=== PATIENT | male | born 1955 | race Caucasian/White ===

== ENCOUNTER 2017-06-15 18:27 | Emergency (ER) | payer BC ==
[2017-06-15 18:39] VITALS: BP 126/87
--- NOTE | 2017-06-15 18:48 | ED ---
Skin Complaint - HPI Summary HPI Summary: 62 YEAR OLD MALE PRESENTS WITH FOREIGN BODY IN RIGHT INDEX FINGER. - History of Current Complaint Chief Complaint: UCUpperExtremity Time Seen by Provider: 06/15/17 18:46 Stated Complaint: SOFT TISSUE COMPLAINT Hx Obtained From: Patient Onset/Duration: Started Days Ago Skin Exposure Onset/Duration: Days Ago Timing: Constant Onset Severity: Moderate Current Severity: Severe Pain Scale Used: 0-10 Numeric - 7 - Allergy/Home Medications Allergies/Adverse Reactions: Allergies Allergy/AdvReac Type Severity Reaction Status Date / Time No Known Allergies Allergy Verified 06/15/17 18:39 PMH/Surg Hx/FS Hx/Imm Hx Previously Healthy: Yes Endocrine/Hematology History: Reports: Hx Diabetes - TYPE II - CHECKS BLOOD SUGAR DAILY- ON ORAL MEDICATION FOR Denies: Hx Sickle Cell Disease Cardiovascular History: Reports: Hx Coronary Artery Disease - HIGH CHOLESTEROL, Hx Hypertension - ON MEDICATION FOR, Hx Peripheral Vascular Disease - HX OF VARICOSE VEINS, Other Cardiovascular Problems/Disorders - CHOLESTEROL CONTROL WITH MEDS Denies: Hx Pacemaker/ICD Respiratory History: Reports: Hx Sleep Apnea Denies: Other Respiratory Problems/Disorders GI History: Reports: Hx Gastroesophageal Reflux Disease - ON MEDICATION FOR History: Denies: Other Problems/Disorders Musculoskeletal History: Reports: Hx Arthritis - BACK-DOES NOT BOTHER PATIENT, EXERCISE HELPS Denies: Other Musculoskeletal History Sensory History: Reports: Hx Cataracts - LEFT, Hx Contacts or Glasses - GLASSES Denies: Hx Hearing Aid Opthamlomology History: Reports: Hx Cataracts - LEFT, Hx Contacts or Glasses - GLASSES Neurological History: Denies: Other Neuro Impairments/Disorders - Surgical History Surgery Procedure, Year, and Place: VARICOSE VEIN [id number]. APPENDECTOMY-[facility]. 12/2012 TAILOR'S BUNIONECTOMY WITH METARTARSAL OSTEOTOMY , EXCISION OF BONE SPUR, DEBRIDEMENT OF TENDON RIGHT FOOT, [facility]. 03/2013 ORIF FIFTH METATARSAL RIGHT FOOT. 05/2013 CATARACT EXTRACTION TO THE RIGHT EYE WITH IOL IMPLANT, [facility] Hx Anesthesia Reactions: No Infectious Disease History: No Infectious Disease History: Reports: Hx Hepatitis - HEPATITIS A AND B, YEARS AGO , NO PROBLEMS NOW Denies: Hx Clostridium Difficile, Hx Human Immunodeficiency Virus (HIV), Hx of Known/Suspected MRSA, Hx Shingles, Hx Tuberculosis, Hx Known/Suspected VRE, Hx Known/Suspected VRSA, History Other Infectious Disease, Traveled Outside the [place] in Last 30 Days - Social History Alcohol Use: Rare Substance Use Type: Reports: None Smoking Status (MU): Never Smoked Tobacco Have You Smoked in the Last Year: No Review of Systems Constitutional: Negative Eyes: Negative ENT: Negative Cardiovascular: Negative Respiratory: Negative Gastrointestinal: Negative Genitourinary: Negative Musculoskeletal: Negative Positive: Other - FOREIGN BODY RIGHT INDEX FINGER All Other Systems Reviewed And Are Negative: Yes Physical Exam Triage Information Reviewed: Yes Vital Signs On Initial Exam: Initial Vitals Temp Pulse BP Pulse Ox 36.8 C 73 126/87 97 06/15/17 18:36 06/15/17 18:36 06/15/17 18:36 06/15/17 18:36 Vital Signs Reviewed: Yes Appearance: Positive: Well-Appearing Skin: Positive: Other - FOREIGN BODY RIGHT INDEX FINGER Eyes: Positive: Normal ENT: Positive: Normal ENT inspection Neck: Positive: Supple Respiratory/Lung Sounds: Positive: Clear to Auscultation Cardiovascular: Positive: Normal Abdomen Description: Positive: Nontender Bowel Sounds: Positive: Present Musculoskeletal: Positive: Normal Neurological: Positive: Normal Psychiatric: Positive: Normal Procedures - Procedure Summary Procedure Summary: FOREIGN BODY REMOVAL RIGHT INDEX FINGER WITH IRIS SCISSORS. DIGITAL BLOCK. CX SENT TO LAB. Diagnostics - Vital Signs Vital Signs Temp Pulse BP Pulse Ox 06/15/17 18:36 36.8 C 73 126/87 97 - Laboratory Lab Statement: Any lab studies that have been ordered have been reviewed, and results considered in the medical decision making process. Course/Dx - Diagnoses Provider Diagnoses: Foreign body (FB) in soft tissue Discharge - Discharge Plan Condition: Stable Disposition: HOME Prescriptions: Sulfamethox/Trimethoprim DS* [Bactrim DS 800/160 TAB*] 1 tab PO BID #20 tab Patient Education Materials: Soft Tissue Foreign Body (ED) Referrals: Christopher Mathias MD [Primary Care Provider] -
[2017-06-15] MEDS ORDERED: Lidocaine 1% MPF* 2 ML VIAL INJ ONE ×3 (19:07→19:47)
--- NOTE | 2017-06-15 19:11 | RAD ---
INDICATION: Foreign body under male right index finger. TECHNIQUE: 3 views of the right index finger were obtained. FINDINGS: There is soft tissue swelling around the distal phalanx and also at the level of the proximal interphalangeal joint. The bones are normal alignment. No fracture or radiopaque foreign body is seen. Joint spaces appear maintained. IMPRESSION: NO FRACTURE OR RADIOPAQUE BODY IS SEEN.
[2017-06-15] MEDS ORDERED: Lidocaine 1% MPF* 2 ML VIAL ONE (19:27)
== END 2017-06-15 20:00 | disposition home or self-care (01) ==
LOC: UCEAST 18:27
DX: S60.450A Superficial foreign body of right index finger, initial encounter (principal); X58.XXXA Exposure to other specified factors, initial encounter; Y93.9 Activity, unspecified; Y92.9 Unspecified place or not applicable; E11.9 Type 2 diabetes mellitus without complications; Z79.84 Long term (current) use of oral hypoglycemic drugs; I25.10 Atherosclerotic heart disease of native coronary artery without angina pectoris; I10 Essential (primary) hypertension; E78.00 Pure hypercholesterolemia, unspecified; I73.9 Peripheral vascular disease, unspecified; K21.9 Gastro-esophageal reflux disease without esophagitis; Z98.41 Cataract extraction status, right eye; Z96.1 Presence of intraocular lens; Z86.19 Personal history of other infectious and parasitic diseases
CPT/HCPCS: 10120; 73140; 87070; 87077; 87186; 87205; 87640; 87641; 99212; G0463

== ENCOUNTER 2018-03-23 08:46 | Day surgery (SDC) | payer BC ==
[~2018-03-23 08:46] MED LIST: Acetaminophen TAB* 325 MG PO PRN; Buffered Lidocaine 0.9% SYRIN* 5 ML/SYR SYRINGE INTRADERM ONE; Famotidine IV* 10 MG/ML 2 ML (20 mg) IV ONE; HYDROmorphone INJ* 1 MG/ML CARPUJECT SYRINGE IV PRN; Naloxone* 0.4 MG/ML 1 ML VIAL IV PRN; Ondansetron INJ* 2 MG/ML VIAL IV PRN; oxyCODONE TAB* 5 MG TAB PO PRN
[2018-03-23] MEDS ORDERED: ceFAZolin 2 GM PREMIX (*) 2 GM/50 ML BAG IVPB ONE (09:02)
[2018-03-23] MEDS ORDERED: Lidocaine 2% PF * 5 ML VIAL ONE (09:16)
[2018-03-23] MEDS ORDERED: Propofol* 10 MG/ML 20 ML BTL IV PUSH ONE (09:16)
[2018-03-23] MEDS ORDERED: fentaNYL* 50 MCG/ML 2 ML VIAL (100 MCG VIAL) ONE (09:16)
[2018-03-23] MEDS ORDERED: DiMENhydriNATE IV* 50 MG/ML VIAL ONE (09:16)
[2018-03-23] MEDS ORDERED: Ketorolac INJ* 30 MG/ML 1 ML VIAL ONE (09:16)
[2018-03-23] MEDS ORDERED: Dexamethasone IV* 4 MG/ML 1 ML (4 MG) ONE ×2 (09:16→10:22)
[2018-03-23] MEDS ORDERED: Midazolam* 1 MG/ML 5 ML VIAL (5 MG) ONE (09:16)
[2018-03-23] MEDS ORDERED: Famotidine IV* 10 MG/ML 2 ML (20 mg) ONE (09:22)
[2018-03-23] MEDS ORDERED: Lidocaine 1% INJ* 10 MG/ML 30 ML SDV ONE (10:22)
[2018-03-23] MEDS ORDERED: Bupivacaine 0.5% SDV PF* 30ML VIAL ONE (10:23)
[2018-03-23 12:26] VITALS: BP 119/79
--- NOTE | 2018-03-24 10:31 | OP ---
DATE OF OPERATION: 03/23/18 - [facility] DATE OF : 51 SURGEON: Wicho Bejarano DPM ESL INSTRUCTIONAL ASSISTANT: None. ANESTHESIA: MAC and local. PRE-OP DIAGNOSES: 1. Painful screw fixation in the distal fifth ray metatarsal. 2. Painful varus rotated fifth ray hammertoe. POST-OP DIAGNOSES: 1. Painful screw fixation in the distal fifth ray metatarsal. 2. Painful varus rotated fifth ray hammertoe. OPERATIVE PROCEDURE: 1. Removal of deep screw fixation from distal fifth ray metatarsal. 2. Correction of fifth ray hammertoe with derotational arthroplasty and alicia- middle phalangectomy, fifth right toe. INDICATIONS: The patient with chronic progressive right forefoot pain related in part to prior screw fixation in the distal fifth metatarsal. The previous osteotomy is well healed and screw needs to be removed to reduce local pain, pressure, and irritation when walking and wearing shoes. He also has varus rotated and contracted fifth ray hammertoe causing pain and painful lesions in previous ulceration. He has pain on walking, wearing shoes, and opts for surgery at this time to decrease the pain to improve his function. PATHOLOGY: Degenerative bone. HEMOSTASIS: Pneumatic ankle tourniquet. ESTIMATED BLOOD LOSS: Less than 20 cc. DESCRIPTION OF PROCEDURE: The patient was brought to the operating room, placed on the operating table in supine position. The anesthesia department administered IV sedation and a peripheral nerve block was performed at the right forefoot with 1:1 mixture of 1% lidocaine plain and 0.5% Marcaine plain. A C-arm was then used to identify the location of the screw head, which was marked on the skin. The right foot was exsanguinated and pneumatic ankle tourniquet was inflated to 250 mmHg above a well-padded right ankle. A linear incision was made over the distal fifth metatarsal using previous surgical scar and taken down to deep fascia with care being taken to retract neurovascular structures and cauterize superficial bleeders as needed. Dissection was carried down to the deep fascia over the screw head, which was incised using a [place] elevator. The screw head was freed from surrounding soft tissue and osseous obstructions. Next, the screw was then retrograded out of the fifth metatarsal with the screwdriver from the ZMP set and once removed, it was inspected and found to be fully intact without any evidence of breakage or shearing. The fifth metatarsal surface did not have any significant hypertrophy or bone spur proliferation. The surgical site was flushed with copious amounts of normal sterile saline. The deep fascia was reapproximated with 4-0 Vicryl, the subcutaneous tissues were reapproximated with 4-0 Vicryl, and skin was closed with 5-0 nylon. Attention was directed to the dorsolateral aspect of the fifth digit where 2 similar converging incisions were made oriented from proximal lateral to more distal medial to offer derotation of the digit. The resultant skin wedge was resected and sent off the field. Dissection was carried out with care being taken to retract neurovascular structures and cauterize superficial bleeders as needed. A transverse tenotomy-capsulotomy was performed of the PIPJ, allowed for exposure of the proximal phalangeal head, which was resected with the sagittal saw. The lateral third of the middle phalanx was also freed from some soft tissue attachments and resected. The power bur was used to smooth rough edges. The surgical site was flushed with copious amounts of normal sterile saline. Next, the tendinous and capsular structures were reapproximated while holding the digit in a derotated position and secured with 4-0 Vicryl. Subcutaneous tissues were reapproximated with 4-0 Vicryl and the skin was closed with 5-0 nylon again while holding the digit in the derotated position. 8 mg total of dexamethasone phosphate was infiltrated about the 2 surgical sites and each incision was dressed with Xeroform gauze and a light compressive dressing was applied with 4x4 gauze, Jos, and a light Coban wrap holding the digit splinted in the derotated position as well. The pneumatic ankle tourniquet was deflated about the right ankle and prompt hyperemic response was noted to all 5 digits of the patient's right foot. Having appeared to have tolerated the procedures and anesthesia well, the patient was transported via cart from the operating room to Recovery in satisfactory condition with cap refill less than 3 seconds to all digits of the right foot. [id number]/[facility] #: [id number] [facility]ONX HOSPITALRoberto Carlos
--- NOTE | 2018-03-24 17:04 | RAD ---
INDICATION: Right foot fifth hammertoe correction, screw removal. No other history is provided. COMPARISONS: None relevant TECHNIQUE: Fluoroscopy was provided for a surgical procedure. Total fluoroscopy time is: 18 seconds FINDINGS: A single spot images submitted, a lateral projection of the forefoot. IMPRESSION: FLUOROSCOPY WAS PROVIDED FOR A SURGICAL PROCEDURE CPT II Codes: G9500
== END 2018-03-23 12:21 | disposition home or self-care (01) ==
LOC: OREAST 08:46
PROVIDERS: ATTEND Podiatrist Foot Surgery
DX: T84.84XA Pain due to internal orthopedic prosthetic devices, implants and grafts, initial encounter (principal); Y83.1 Surgical operation with implant of artificial internal device as the cause of abnormal reaction of the patient, or of later complication, without mention of misadventure at the time of the procedure; M20.41 Other hammer toe(s) (acquired), right foot; E11.9 Type 2 diabetes mellitus without complications; Z79.84 Long term (current) use of oral hypoglycemic drugs; E78.5 Hyperlipidemia, unspecified; I10 Essential (primary) hypertension; K21.9 Gastro-esophageal reflux disease without esophagitis; E03.9 Hypothyroidism, unspecified; G47.33 Obstructive sleep apnea (adult) (pediatric)
CPT/HCPCS: 76000; 88300; 88304; 88311; J0690; J1100; J1240; J1885; J2250; J2704; J3010

== ENCOUNTER 2018-10-12 06:30 | Day surgery (SDC) | payer OTHER, BC ==
[~2018-10-12 06:30] MED LIST changes: -Acetaminophen TAB* 325 MG PO PRN; +Dexamethasone IV* 4 MG/ML 1 ML (4 MG) IV SLOW PU ONE; -Famotidine IV* 10 MG/ML 2 ML (20 mg) IV ONE; -HYDROmorphone INJ* 1 MG/ML CARPUJECT SYRINGE IV PRN; +Lactated Ringers 1000 ML Bag* 1,000 ML IV SCH; -Naloxone* 0.4 MG/ML 1 ML VIAL IV PRN; -Ondansetron INJ* 2 MG/ML VIAL IV PRN; -oxyCODONE TAB* 5 MG TAB PO PRN
[2018-10-12] MEDS ORDERED: ceFAZolin 2 GM PREMIX in ORs 2 GM/50 ML BAG IVPB ONE (07:02)
[2018-10-12] MEDS ORDERED: Dexamethasone IV* 4 MG/ML 1 ML (4 MG) ONE ×2 (07:02→07:12)
[2018-10-12] MEDS ORDERED: Lidocaine 1% INJ* 10 MG/ML 30 ML SDV ONE (07:12)
[2018-10-12] MEDS ORDERED: Bupivacaine 0.5%* 50 ML VIAL ONE (07:13)
[2018-10-12] MEDS ORDERED: Propofol* 10 MG/ML 20 ML BTL ONE (07:32)
[2018-10-12] MEDS ORDERED: Midazolam* 1 MG/ML 5 ML VIAL (5 MG) ONE (07:32)
[2018-10-12] MEDS ORDERED: fentaNYL* 50 MCG/ML 2 ML VIAL (100 MCG VIAL) ONE (07:32)
[2018-10-12] MEDS ORDERED: Ondansetron INJ* 2 MG/ML VIAL ONE (07:32)
[2018-10-12] MEDS ORDERED: Ondansetron INJ* 2 MG/ML VIAL IV PRN (08:14)
[2018-10-12] MEDS ORDERED: fentaNYL* 50 MCG/ML 2 ML VIAL (100 MCG VIAL) IV PRN (08:14)
[2018-10-12] MEDS ORDERED: oxyCODONE/Acetamin 5/325 MG* TAB PO PRN (08:14)
[2018-10-12] MEDS ORDERED: Naloxone* 0.4 MG/ML 1 ML VIAL IV PRN (08:14)
[2018-10-12 09:04] VITALS: BP 113/70
--- NOTE | 2018-10-12 14:06 | OP ---
DATE OF OPERATION: 10/12/18 - [facility] DATE OF : 51 SURGEON: Wicho Bejarano DPM SPECIAL DELIVERY WORKER: None. ANESTHESIA: MAC with local. PRE-OP DIAGNOSES: 1. Painful deep screw hardware in the fifth metatarsal on the right foot. 2. Painful bone spur at the lateral base of the fifth metatarsal causing a pre- ulcerative lesion in the patient with diabetes on the right foot. POST-OP DIAGNOSES: 1. Painful deep screw hardware in the fifth metatarsal on the right foot. 2. Painful bone spur at the lateral base of the fifth metatarsal causing a pre- ulcerative lesion in the patient with diabetes on the right foot. OPERATIVE PROCEDURE: 1. Removal of screw fixation from proximal fifth metatarsal in the right foot. 2. Resection of bone spurs from two areas in the proximal half of the fifth metatarsal on the right foot. PATHOLOGY: Degenerative bone and screw hardware. HEMOSTASIS: Pneumatic ankle tourniquet. ESTIMATED BLOOD LOSS: Less than 10 cc. INDICATIONS: This patient with previous fracture of the fifth metatarsal and ORIF with screw fixation. The patient has developed increasing pain and a pre- ulcerative lesion at the plantar lateral aspect of the fifth metatarsal. I suspect that some of the pain is from the screw hardware as he is on a seat all day at work and there is also bony hypertrophies developed in 2 areas at the plantar lateral aspect of the fifth metatarsal. The patient needs to have the screw removed to reduce pain and the bone spurs resected to reduce the bulk and pressure creating these pre-ulcerative lesions and pain on the right foot. DESCRIPTION OF PROCEDURE: The patient was brought to the operating room and placed on the operating table in supine position. The anesthesia department administered IV sedation and peripheral nerve block was performed about the right forefoot with 1:1 mixture of 1% lidocaine plain and 0.5% Marcaine plain. The right foot was prepped and draped in the usual fashion. Next, a C-arm was used to localize the head of the screw at the base of the fifth metatarsal. Next, the right foot was exsanguinated with an Esmarch bandage and the pneumatic ankle tourniquet was inflated to 250 mmHg about a well-padded right ankle. A linear incision was made at the dorsolateral aspect near the base of the fifth metatarsal. This was deepened through the subcutaneous tissues to the proximal styloid process, where the screw head was visualized. [place] and [place] elevator was needed to free bony and fibrous tissue from the screw head and then the screw was retrograded with screwdriver out of the fifth metatarsal. It was inspected and found to be fully intact without any evidence of breakage or shearing. with the rongeur to reduce its prominence. Next, a portion of the peroneus brevis tendon had to be resected as well as some of the periosteal tissues reflected to allow for exposure of the bone spurs. A sagittal saw was used to resect the spurs and this was sent off the field as specimen. A power sadi was used to reduce and further smooth this area as needed. The surgical site was flushed with copious amounts of normal sterile saline. Next, the tendon and periosteal structures were reapproximated and secured with 2-0 Polysorb. Subcutaneous tissues were reapproximated with 4- 0 Polysorb and skin was reapproximated with 4-0 and 5-0 nylon. Xeroform gauze was applied across the surgical site and the foot was dressed with light sterile mildly compressive dressing with 4x4 gauze, Jos, and Lite Coban wrap. Pneumatic ankle tourniquet was deflated about the right ankle and prompt hyperemic response did involve 5 digits of the patient's right foot. Having appeared to tolerate the procedure and anesthesia well, the patient was transported via cart from the operating room to Recovery in satisfactory condition with cap refill less than 3 seconds to all digits of the right foot. [id number]/[facility] #: [id number] LETICIA
== END 2018-10-12 09:29 | disposition home or self-care (01) ==
LOC: OREAST 06:30
PROVIDERS: ATTEND Podiatrist Foot Surgery
DX: T84.84XA Pain due to internal orthopedic prosthetic devices, implants and grafts, initial encounter (principal); Y83.1 Surgical operation with implant of artificial internal device as the cause of abnormal reaction of the patient, or of later complication, without mention of misadventure at the time of the procedure; M77.8 Other enthesopathies, not elsewhere classified; M25.774 Osteophyte, right foot; I10 Essential (primary) hypertension; E78.5 Hyperlipidemia, unspecified; E11.9 Type 2 diabetes mellitus without complications; Z79.84 Long term (current) use of oral hypoglycemic drugs; G47.33 Obstructive sleep apnea (adult) (pediatric); E03.9 Hypothyroidism, unspecified; K21.9 Gastro-esophageal reflux disease without esophagitis
CPT/HCPCS: 88300; 88304; 88311; J0690; J1100; J2250; J2405; J2704; J3010

== ENCOUNTER 2019-03-31 10:57 | Emergency (ER) | payer BC, OTHER ==
--- OUTSIDE RECORDS SUMMARY | 2019-03-31 11:04 | XMS REPORT | Continuity of Care Document ---
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 [address] PayID: [id number] [place] [address] Group Name: [employer] Joce Umaña [address] [place] [id number] Group Name: [employer] Joce Umaña [address] [place] [address] Expires: 2005 Policy Number: [id number] [facility] Joce Umaña Group Name: [facility] [employer] 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 [address] [address] PayID: [id number] [place] [address] Problems Active Problems Provider Date Essential hypertension Onset: 07/16/2015 Type 2 diabetes mellitus Onset: 12/29/2011 Hyperlipidemia Onset: 12/29/2011 Family History Date Family Member(s) Observation Comments Father Father due to Alzheimer's Disease Mother Mother due to Breast Cancer Social History Type Date Description Comments Sex Unknown Marital Status Lives With Alone Pets None Occupation Currently Working ETOH Use Rarely consumes alcohol Tobacco Use Start: Unknown Patient has never smoked Recreational Drug Use Never Used Drugs Smoking Status Reviewed: 03/28/19 Patient has never smoked Medications Active Medications SIG Qnty Indications Ordering Provider Date Glucosamine 90caps Christopher 02/08/2018 Chondroitin Complex MD [facility] Capsules Levothyroxine Sodium take one tablet 90tabs Christopher 04/28/2017 by mouth every MD Mey 50mcg Tablets day Naproxen 1 by mouth 60tabs S63.502A Christopher 04/20/2017 500mg Tablets twice a day MD Mey Simvastatin 1 by mouth 90tabs E78.5 Christopher 08/12/2015 40mg Tablets every day MD Mey Lisinopril-Hydrochloro take one tablet 90tabs I10 Christopher 05/27/2014 thiazide by mouth daily. MD Mey 20-25mg Tablets Metformin HCL ER take 1 tablet 180tabs E08.40 Christopher 04/11/2013 750mg twice a day MD Mey Tablets ER 24HR Fish Oil Double Christopher 04/11/2013 Strength MD Mey 1200mg Capsules Glipizide XL 1 by mouth 90tabs E11.40 Christopher 12/29/2011 10mg Tablets every day MD Mey ER 24HR Aspirin I10 [place], 12/29/2011 81mg Tablets Sary Bennett NP Gabapentin take 1 capsule 270caps E11.40 Christopher 300mg Capsules 3 times a day MD Mey History Medications Shingrix ok to have 1units Z00.01 Christopher 08/08/2018 - 50mcg/0.5ML immunization at [facility] 12/28/2018 Suspension Rec pharmacy Omeprazole Take One Capsule 90caps Christopher 01/17/2018 - 20mg By Mouth Every MD Mey 09/28/[address] Day Terbinafine HCL 1 by mouth every 30tabs B35.4 Christopher 04/20/2017 - 250mg day MD Mey 07/27/2017 Tablets Clotrimazole/Betameth use three times a 30units B35.6 Christopher 06/24/2016 - asone Dipropionate day until clear MD Mey 07/21/2016 at least 2 weeks 1-0.05% Cream Azithromycin take two tablets 2tabs A56.8 Christopher 06/24/2016 - 500mg now MD Mey 07/21/2016 Tablets Meloxicam 1 by mouth every 30tabs Christopher 07/16/2015 - 7.5mg Tablets day MD Mey 02/17/2016 Meloxicam 1 by mouth every 30tabs Christopher 02/28/2015 - 15mg Tablets day MD Mey 07/16/2015 Cyclobenzaprine HCL 1 by mouth three 45tabs 728.85 Christopher 08/07/2014 - 5mg times a day MD Mey 02/28/2015 Tablets Cialis 1 by mouth every 30tabs Christopher 02/06/2014 - 5mg Tablets day MD Mey 02/06/2014 Cialis take 1 tablet by 3tabs Christopher 02/06/2014 - 20mg Tablets mouth every day MD Mey 02/17/2016 as needed Cialis 1 as needed 3tabs Christopher 05/24/2013 - 20mg Tablets MD Mey 02/06/2014 Silvadene apply open area 1units 949.0 Christopher 03/30/2013 - 1% Cream daily MD Mey 04/11/2013 Simvastatin 1 tab by mouth 90tabs E78.5 Christopher 04/26/2012 - 10mg every day every MD Mey 08/12/2015 Tablets evening Niaspan 1 po qd 90tabs [facility] 12/29/2011 - 500mg Tablets Sary Bennett NP 04/26/2012 ER Metformin HCL ER 1 po qd 90tabs 250.00 Gabbie, 12/29/2011 - 500mg Sary Bennett NP 04/11/2013 Tablets ER 24HR Prilosec OTC 1 po qd 90tabs 530.81 Christopher 12/29/2011 - 20mg MD Mey 05/27/2014 Tablets Lisinopril-Hydrochlor take one tablet 90tabs 401.9 Christopher 12/29/2011 - othiazide by mouth daily. MD Mey 05/27/2014 20-25mg Tablets Amoxicillin/Clavulana take 1 tablet by Unknown - te Potassium mouth twice a day 02/28/2015 875-125mg Tablets Immunizations CPT Code Status Date Vaccine Lot # [id number] Given 08/13/2015 Pneumococcal Conjugate Vaccine 13 Valent For Intramuscular Use 14816 Given 12/07/2012 Tdap - Tetanus/Diptheria/Acellular Pertussis 86248 Given 11/24/2006 Tetanus And Diptheria (Td) For Adult Use Preservative Free Vital Signs Date Vital Result Comment 03/28/2019 3:20pm Weight 247.00 lb BP Systolic 124 mmHg BP Diastolic 76 mmHg 12/28/2018 2:59pm Weight 247.00 lb BP Systolic Sitting 114 mmHg BP Diastolic Sitting 64 mmHg BP Diastolic Standing 0 mmHg 09/28/2018 3:00pm Height 76 inches Weight 247.12 lb Heart Rate 79 /min BP Systolic 122 mmHg BP Diastolic 90 mmHg Respiratory Rate 12 /min Body Temperature 97.9 F BMI (Body Mass Index) 30.1 kg/m2 08/08/2018 3:11pm Height 7.5 inches Weight 243.00 lb Heart Rate 72 /min BP Systolic 132 mmHg BP Diastolic 82 mmHg Respiratory Rate 16 /min BMI (Body Mass Index) 3037.0 kg/m2 05/10/2018 3:24pm Weight 242.00 lb BP Systolic 108 mmHg BP Diastolic 68 mmHg 03/15/2018 3:13pm Height 74 inches Weight 236.00 lb BP Systolic 140 mmHg BP Diastolic 72 mmHg BMI (Body Mass Index) 30.3 kg/m2 02/08/2018 3:11pm Weight 236.00 lb BP Systolic 132 mmHg BP Diastolic 70 mmHg 11/10/2017 3:58pm Weight 240.00 lb BP Systolic 108 mmHg BP Diastolic 74 mmHg 07/27/2017 3:28pm Height 75 inches Weight 235.50 lb Heart Rate 72 /min BP Systolic 110 mmHg BP Diastolic 76 mmHg Respiratory Rate 16 /min BMI (Body Mass Index) 29.4 kg/m2 05/04/2017 1:48pm Weight 241.00 lb BP Systolic 116 mmHg BP Diastolic 70 mmHg 04/20/2017 3:07pm Weight 235.00 lb BP Systolic 100 mmHg BP Diastolic 78 mmHg 04/20/2017 3:51pm Weight 235.00 lb BP Systolic 100 mmHg BP Diastolic 78 mmHg 01/18/2017 2:45pm Weight 237.50 lb BP Systolic 108 mmHg BP Diastolic 80 mmHg 10/20/2016 3:25pm Weight 240.00 lb BP Systolic 108 mmHg BP Diastolic 84 mmHg 07/21/2016 3:10pm Height 75 inches Weight 235.50 lb Heart Rate 68 /min BP Systolic 100 mmHg BP Diastolic 82 mmHg Respiratory Rate 16 /min Body Temperature 96.7 F BMI (Body Mass Index) 29.4 kg/m2 06/24/2016 3:30pm Weight 232.00 lb BP Systolic 110 mmHg BP Diastolic 80 mmHg 06/08/2016 4:38pm Weight 232.00 lb BP Systolic 90 mmHg BP Diastolic 70 mmHg 04/22/2016 3:22pm Weight 236.00 lb BP Systolic 107 mmHg BP Diastolic 70 mmHg 02/17/2016 9:04am Height 75 inches Weight 237.00 lb Heart Rate 72 /min BP Systolic 118 mmHg BP Diastolic 82 mmHg Respiratory Rate 16 /min Body Temperature 97.2 F BMI (Body Mass Index) 29.6 kg/m2 01/15/2016 3:25pm Weight 238.00 lb BP Systolic 110 mmHg BP Diastolic 80 mmHg 10/14/2015 3:29pm Weight 240.00 lb BP Systolic 118 mmHg BP Diastolic 88 mmHg 07/16/2015 3:24pm Height 74.75 inches Weight 234.00 lb Heart Rate 68 /min BP Systolic 110 mmHg BP Diastolic 68 mmHg Respiratory Rate 16 /min Body Temperature 97.8 F BMI (Body Mass Index) 29.4 kg/m2 02/28/2015 9:25am Weight 236.50 lb BP Systolic 106 mmHg BP Diastolic 80 mmHg 12/04/2014 3:10pm Weight 238.50 lb BP Systolic 112 mmHg BP Diastolic 80 mmHg 08/28/2014 2:41pm Weight 233.50 lb BP Systolic 116 mmHg BP Diastolic 84 mmHg 08/07/2014 4:33pm Weight 233.50 lb BP Systolic 110 mmHg BP Diastolic 72 mmHg 05/27/2014 3:21pm Height 75 inches Weight 232.00 lb Heart Rate 64 /min BP Systolic 12 mmHg BP Diastolic 76 mmHg Respiratory Rate 16 /min Body Temperature 96.5 F BMI (Body Mass Index) 29.0 kg/m2 02/06/2014 2:49pm Weight 238.00 lb BP Systolic 108 mmHg BP Diastolic 78 mmHg 11/06/2013 2:53pm Weight 247.00 lb BP Systolic 114 mmHg BP Diastolic 72 mmHg 07/25/2013 3:30pm Weight 248.50 lb BP Systolic 120 mmHg BP Diastolic 80 mmHg 05/24/2013 11:28am Height 75 inches Weight 249.00 lb Heart Rate 60 /min BP Systolic 130 mmHg BP Diastolic 84 mmHg Respiratory Rate 16 /min Body Temperature 96.5 F BMI (Body Mass Index) 31.1 kg/m2 04/25/2013 10:31am Weight 250.00 lb BP Systolic 110 mmHg BP Diastolic 70 mmHg 04/11/2013 10:37am Height 75.25 inches Weight 250.00 lb Heart Rate 78 /min BP Systolic 120 mmHg BP Diastolic 80 mmHg Respiratory Rate 20 /min Body Temperature 97.9 F BMI (Body Mass Index) 31.0 kg/m2 01/01/2013 2:33pm Weight 248.00 lb BP Systolic 112 mmHg BP Diastolic 70 mmHg Body Temperature 97.6 F 12/07/2012 3:20pm Height 76 inches Weight 248.00 lb Heart Rate 72 /min BP Systolic 118 mmHg BP Diastolic 80 mmHg Respiratory Rate 14 /min Body Temperature 97.5 F BMI (Body Mass Index) 30.2 kg/m2 08/30/2012 3:41pm Weight 242.00 lb BP Systolic 116 mmHg BP Diastolic 70 mmHg 04/26/2012 3:44pm Height 76 inches Weight 242.00 lb BP Systolic 120 mmHg BP Diastolic 80 mmHg BMI (Body Mass Index) 29.5 kg/m2 12/29/2011 3:31pm Height 76 inches Weight 246.00 lb BP Systolic 120 mmHg BP Diastolic 80 mmHg BMI (Body Mass Index) 29.9 kg/m2 Results Test Date Facility Test Result H/L Range Note Laboratory test 10/12/2018 N2N/CCD Import Point of Care 160 mg/dL High 70 -100 1 finding Glucose Laboratory test 09/27/2018 N2N/CCD Import C-Reactive 0.61 mg/L 2 finding Protein,Cardia c Free T3 2.88 pg/mL 2.18-3.98 Free T4 0.89 ng/dL 0.76-1.46 Glycohemoglobin (A1c) 6.7 % High 4.2-6.3 3 PSA ([place] Loci) 0.42 ng/mL 4 Reflex add FT3? Y Reflex add FT4? Y Thyroid Stim Hormone 6.89 uIU/mL High 0.3-4.2 eAG 146 mg/dL CBC 09/27/2018 N2N/CCD Import Hematocrit 43.7 % 38-48 Hemoglobin 15.3 gm/dL 12.8-17 Mean Cell Volume 91.6 fl 80-96 Mean Corpuscular HGB 32.1 pg 27-33 Mean Corpuscular HGB Conc 35.0 g/dL 31.7-36 Mean Platelet Volume 9.5 fL 6.6-10.6 Platelet Count 153 K/uL Low 155-360 Red Blood Count 4.77 M/uL 4.2-5.8 Red Cell Distri Width %CV 12.9 % 11.6-15.8 White Blood Count 4.7 K/uL 3.4-10.5 Comprehensive Metabolic Panel 09/27/2018 N2N/CCD Import Alb/Glob 1.2 ratio Albumin 3.9 g/dL 3.4-5 Alkaline Phosphatase 65 U/L 45-117 Anion Gap 7 mEq/L Low 8-16 BUN 34 mg/dL High 7-18 BUN/Creat 30.9 ratio Bilirubin,Total 0.6 mg/dL 0.2-1 Calcium 8.9 mg/dL 8.5-10.1 Carbon Dioxide 26 mmol/L 21-32 Chloride 105 mmol/L 98-107 Creatinine 1.1 mg/dL 0.6-1.3 Globulin 3.3 g/dL 1.9-4.3 Glom Filtration Rate, Estimate >60 mL/min Glucose 112 mg/dL High 74-106 If >60 mL/min 5 Potassium 4.2 mmol/L 3.5-5.1 Reflex add FT3? Y Reflex add FT4? Y SGPT/Alt 69 U/L 12-78 Sgot/Ast 40 U/L High 15-37 Sodium 138 mmol/L 136-145 Total Protein 7.2 g/dL 6.4-8.2 Homocyst(E)Ine, P/S 09/27/2018 N2N/CCD Import Homocyst(e)ine, P/S 115.0 High 0-15 6 umol/L LDL Cholesterol 09/27/2018 N2N/CCD Import Cholesterol 148 mg/dL 7 Profile HDL Cholesterol 47 mg/dL 8 LDL-Cholesterol 79 mg/dL 9 Reflex add FT3? Y Reflex add FT4? Y Triglycerides 108 mg/dL 10 Laboratory test 08/03/2018 N2N/CCD Import Glycohemoglobin (A1c) 6.2 % 4.2-6.3 11, 12 finding eAG 131 mg/dL Comprehensive Metabolic Panel 08/03/2018 N2N/CCD Import Alb/Glob 1.1 ratio Albumin 3.9 g/dL 3.4-5 Alkaline Phosphatase 63 U/L 45-117 Anion Gap 8 mEq/L 8-16 BUN 31 mg/dL High 7-18 BUN/Creat 25.8 ratio Bilirubin,Total 0.7 mg/dL 0.2-1 Calcium 9.0 mg/dL 8.5-10.1 Carbon Dioxide 26 mmol/L 21-32 Chloride 106 mmol/L 98-107 Creatinine 1.2 mg/dL 0.6-1.3 Globulin 3.5 g/dL 1.9-4.3 Glom Filtration Rate, Estimate >60 mL/min Glucose 103 mg/dL 74-106 If >60 mL/min 13 Potassium 4.0 mmol/L 3.5-5.1 SGPT/Alt 80 U/L High 12-78 Sgot/Ast 54 U/L High 15-37 Sodium 140 mmol/L 136-145 Total Protein 7.4 g/dL 6.4-8.2 LDL Cholesterol Profile 08/03/2018 N2N/CCD Import Cholesterol 139 mg/dL 14 HDL Cholesterol 50 mg/dL 15 LDL-Cholesterol 74 mg/dL 16 Triglycerides 75 mg/dL 17 Microalbumin,Random 08/03/2018 N2N/CCD Import Microalbumin,Urine < 5.0 Urine mg/L Laboratory test finding 03/23/2018 N2N/CCD Import Point of Care Glucose 128 High 70- 18 mg/dL 100 Laboratory test finding 03/18/2018 N2N/CCD Import Act Partial Thrombo 24.8 s 23. 19 Time 4-3 5 Anticoagulant Therapy? No CBS W/Automated Diff 03/18/2018 N2N/CCD Import Anticoagulant Therapy? No Bas% 0.7 % 0-1.1 Baso # 0.03 K/uL 0-0.1 Eo% 2.4 % 0-6.6 Eos # 0.11 K/uL 0-0.5 Hematocrit 45.9 % 38-48 Hemoglobin 15.8 gm/dL 12.8-17 Lymph # 1.07 K/uL 1-4 Lymph % 23.8 % 20-42 Mean Cell Volume 90.9 fl 80-96 Mean Corpuscular HGB 31.3 pg 27-33 Mean Corpuscular HGB Conc 34.4 g/dL 31.7-36 Mean Platelet Volume 9.1 fL 6.6-10.6 [place] # 0.50 K/uL 0-0.8 [place] % 11.1 % High 0-10 Neut# 2.78 K/uL 1.8-7 Neut% 62.0 % 33-73 Platelet Count 171 K/uL 155-360 Red Blood Count 5.05 M/uL 4.2-5.8 Red Cell Distri Width %CV 13.5 % 11.6-15.8 Red Cell Distri Width SD 43.0 fl 36-51 White Blood Count 4.5 K/uL 3.4-10.5 Comprehensive Metabolic Panel 03/18/2018 N2N/CCD Import Alb/Glob 1.3 ratio Albumin 4.2 g/dL 3.4-5 Alkaline Phosphatase 71 U/L 45-117 Anion Gap 6 mEq/L Low 8-16 BUN 31 mg/dL High 7-18 BUN/Creat 25.8 ratio Bilirubin,Total 0.6 mg/dL 0.2-1 Calcium 9.0 mg/dL 8.5-10.1 Carbon Dioxide 28 mmol/L 21-32 Chloride 103 mmol/L 98-107 Creatinine 1.2 mg/dL 0.6-1.3 Globulin 3.3 g/dL 1.9-4.3 Glom Filtration Rate, Estimate >60 mL/min Glucose 160 mg/dL High 74-106 If >60 mL/min 20 Potassium 4.2 mmol/L 3.5-5.1 SGPT/Alt 73 U/L 12-78 Sgot/Ast 43 U/L High 15-37 Sodium 137 mmol/L 136-145 Total Protein 7.5 g/dL 6.4-8.2 LDL Cholesterol Profile 03/18/2018 N2N/CCD Import Cholesterol 140 mg/dL 21 HDL Cholesterol 54 mg/dL 22 LDL-Cholesterol 73 mg/dL 23 Triglycerides 66 mg/dL 24 Microalbumin,Random 03/18/2018 N2N/CCD Import Microalbumin,Urine < 6.0 Urine mg/L Protime 03/18/2018 N2N/CCD Import Anticoagulant Therapy? No Inr 1.0 1 0.9-1.1 25 Protime 13.6 s 12-14.4 Laboratory test 02/04/2018 N2N/CCD Import Glycohemoglobin 6.6 % High 4.2- 6.3 26, 27 finding (A1c) Reflex add FT4? Y Thyroid Stim Hormone 2.17 uIU/mL 0.3-4.2 eAG 143 mg/dL Microalbumin,Random 02/04/2018 N2N/CCD Import Microalbumin,Urine 7.6 mg/L Urine Laboratory test finding 11/08/2017 N2N/CCD Import C-Reactive 1.50 28 Protein,Cardiac mg/L Glycohemoglobin (A1c) 6.6 % High 4.2-6.3 29 Reflex add FT4? Y Thyroid Stim Hormone 3.56 uIU/mL 0.3-4.2 eAG 143 mg/dL CBC 11/08/2017 N2N/CCD Import Hematocrit 43.6 % 38-48 Hemoglobin 15.6 gm/dL 12.8-17 Mean Cell Volume 90.5 fl 80-96 Mean Corpuscular HGB 32.4 pg 27-33 Mean Corpuscular HGB Conc 35.8 g/dL 31.7-36 Mean Platelet Volume 9.4 fL 6.6-10.6 Platelet Count 188 K/uL 155-360 Red Blood Count 4.82 M/uL 4.2-5.8 Red Cell Distri Width %CV 13.4 % 11.6-15.8 White Blood Count 4.9 K/uL 3.4-10.5 Comprehensive Metabolic Panel 11/08/2017 N2N/FusionStorm Import Alb/Glob 1.2 ratio Albumin 4.1 g/dL 3.4-5 Alkaline Phosphatase 76 U/L 45-117 Anion Gap 8 mEq/L 8-16 BUN 30 mg/dL High 7-18 BUN/Creat 27.2 ratio Bilirubin,Total 0.7 mg/dL 0.2-1 Calcium 9.7 mg/dL 8.5-10.1 Carbon Dioxide 26 mmol/L 21-32 Chloride 103 mmol/L 98-107 Creatinine 1.1 mg/dL 0.6-1.3 Globulin 3.5 g/dL 1.9-4.3 Glom Filtration Rate, Estimate >60 mL/min Glucose 102 mg/dL 74-106 If >60 mL/min 30 Potassium 4.2 mmol/L 3.5-5.1 Reflex add FT4? Y SGPT/Alt 75 U/L 12-78 Sgot/Ast 52 U/L High 15-37 Sodium 137 mmol/L 136-145 Total Protein 7.6 g/dL 6.4-8.2 Homocyst(E)Ine, P/S 11/08/2017 N2N/CCD Import Homocyst(e)ine, P/S 64.7 High 0-15 31 umol/L LDL Cholesterol 11/08/2017 N2N/CCD Import Cholesterol 146 mg/dL 32 Profile HDL Cholesterol 54 mg/dL 33 LDL-Cholesterol 76 mg/dL 34 Reflex add FT4? Y Triglycerides 78 mg/dL 35 Microalbumin,Random 11/08/2017 N2N/CCD Import Microalbumin,Urine 6.1 Urine mg/L Laboratory test finding 07/23/2017 N2N/CCD Import Glycohemoglobin (A1c) 6.9 % High 4.2 36, -6. 37 3 Thyroid Stim Hormone 3.02 uIU/mL 0.3-4.2 eAG 151 mg/dL CBC 07/23/2017 N2N/CCD Import Hematocrit 43.1 % 38-48 Hemoglobin 14.9 gm/dL 12.8-17 Mean Cell Volume 92.5 fl 80-96 Mean Corpuscular HGB 32.0 pg 27-33 Mean Corpuscular HGB Conc 34.6 g/dL 31.7-36 Mean Platelet Volume 10.0 fL 6.6-10.6 Platelet Count 162 K/uL 150-400 Red Blood Count 4.66 M/uL 4.2-5.8 Red Cell Distri Width %CV 13.4 % 11.6-15.8 White Blood Count 3.8 K/uL 3.4-10.5 Comprehensive Metabolic Panel 07/23/2017 N2N/CCD Import Alb/Glob 1.2 ratio Albumin 3.8 g/dL 3.4-5 Alkaline Phosphatase 97 U/L 45-117 Anion Gap 8 mEq/L 8-16 BUN 30 mg/dL High 7-18 BUN/Creat 27.2 ratio Bilirubin,Total 0.5 mg/dL 0.2-1 Calcium 8.8 mg/dL 8.5-10.1 Carbon Dioxide 25 mmol/L 21-32 Chloride 104 mmol/L 98-107 Creatinine 1.1 mg/dL 0.6-1.3 Globulin 3.2 g/dL 1.9-4.3 Glom Filtration Rate, Estimate >60 mL/min Glucose 156 mg/dL High 74-106 If >60 mL/min 38 Potassium 4.2 mmol/L 3.5-5.1 SGPT/Alt 59 U/L 12-78 Sgot/Ast 40 U/L High 15-37 Sodium 137 mmol/L 136-145 Total Protein 7.0 g/dL 6.4-8.2 LDL Cholesterol Profile 07/23/2017 N2N/FusionStorm Import Cholesterol 138 mg/dL 39 HDL Cholesterol 56 mg/dL 40 LDL-Cholesterol 71 mg/dL 41 Triglycerides 57 mg/dL 42 Microalbumin,Random 07/23/2017 N2N/FusionStorm Import Microalbumin,Urine 6.9 mg/L Urine Laboratory test finding 06/15/2017 N2N/CCD Import MRSA/S. aureus Ssti See 43, PCR Result 44 Below Wound/Misc Culture-Gram Stain See Result Below 45 Laboratory test 04/19/2017 N2N/FusionStorm Import Glycohemoglobin 6.5 % High 4.2- 6.3 46, 47 finding (A1c) Thyroid Stim Hormone 2.23 uIU/mL 0.3-4.2 eAG 140 mg/dL CBS W/Automated Diff 04/19/2017 N2N/FusionStorm Import Bas% 0.3 % 0-1.1 Baso # 0.02 K/uL 0-0.1 Eo% 1.3 % 0-6.6 Eos # 0.08 K/uL 0-0.5 Hematocrit 42.4 % 38-48 Hemoglobin 15.2 gm/dL 12.8-17 Lymph # 0.96 K/uL Low 1-4 Lymph % 15.4 % Low 20-42 Mean Cell Volume 91.0 fl 80-96 Mean Corpuscular HGB 32.6 pg 27-33 Mean Corpuscular HGB Conc 35.8 g/dL 31.7-36 Mean Platelet Volume 9.2 fL 6.6-10.6 [place] # 0.65 K/uL 0-0.8 [place] % 10.4 % High 0-10 Neut# 4.53 K/uL 1.8-7 Neut% 72.6 % 33-73 Platelet Count 160 K/uL 150-400 Red Blood Count 4.66 M/uL 4.2-5.8 Red Cell Distri Width %CV 12.9 % 11.6-15.8 Red Cell Distri Width SD 42.5 fl 36-51 White Blood Count 6.2 K/uL 3.4-10.5 Laboratory test finding 02/07/2017 N2N/FusionStorm Import CK 716 U/L High 39-308 48 Troponin-I < 0.015 ng/mL 49 CBS W/Automated Diff 02/07/2017 N2N/FusionStorm Import Bas% 0.2 % 0-1.1 Baso # 0.01 K/uL 0-0.1 Eo% 3.3 % 0-6.6 Eos # 0.15 K/uL 0-0.5 Hematocrit 44.4 % 38-48 Hemoglobin 15.5 gm/dL 12.8-17 Lymph # 1.27 K/uL 1-4 Lymph % 27.9 % 20-42 Mean Cell Volume 92.9 fl 80-96 Mean Corpuscular HGB 32.4 pg 27-33 Mean Corpuscular HGB Conc 34.9 g/dL 31.7-36 Mean Platelet Volume 9.6 fL 6.6-10.6 [place] # 0.41 K/uL 0-0.8 [place] % 9.0 % 0-10 Neut# 2.71 K/uL 1.8-7 Neut% 59.6 % 33-73 Platelet Count 150 K/uL 150-400 Red Blood Count 4.78 M/uL 4.2-5.8 Red Cell Distri Width %CV 12.9 % 11.6-15.8 Red Cell Distri Width SD 42.9 fl 36-51 White Blood Count 4.6 K/uL 3.4-10.5 Comprehensive Metabolic Panel 02/07/2017 N2N/CCD Import Alb/Glob 1.2 ratio Albumin 3.9 g/dL 3.4-5 Alkaline Phosphatase 84 U/L 45-117 Anion Gap 11 mEq/L 8-16 BUN 29 mg/dL High 7-18 BUN/Creat 22.3 ratio Bilirubin,Total 0.5 mg/dL 0.2-1 Calcium 9.0 mg/dL 8.5-10.1 Carbon Dioxide 24 mmol/L 21-32 Chloride 103 mmol/L 98-107 Creatinine 1.3 mg/dL 0.6-1.3 Globulin 3.2 g/dL 1.9-4.3 Glom Filtration Rate, Estimate 59 mL/min Glucose 178 mg/dL High 74-106 If >60 mL/min 50 Potassium 4.0 mmol/L 3.5-5.1 SGPT/Alt 71 U/L 12-78 Sgot/Ast 39 U/L High 15-37 Sodium 138 mmol/L 136-145 Total Protein 7.1 g/dL 6.4-8.2 Laboratory test 01/18/2017 N2N/CCD Import Glycohemoglobin 6.7 % High 4.2- 6.3 51, 52 finding (A1c) eAG 146 mg/dL Comprehensive Metabolic Panel 01/18/2017 N2N/CCD Import Alb/Glob 1.4 ratio Albumin 4.3 g/dL 3.4-5 Alkaline Phosphatase 67 U/L 45-117 Anion Gap 10 mEq/L 8-16 BUN 27 mg/dL High 7-18 BUN/Creat 24.5 ratio Bilirubin,Total 0.9 mg/dL 0.2-1 Calcium 9.0 mg/dL 8.5-10.1 Carbon Dioxide 26 mmol/L 21-32 Chloride 102 mmol/L 98-107 Creatinine 1.1 mg/dL 0.6-1.3 Globulin 3.0 g/dL 1.9-4.3 Glom Filtration Rate, Estimate >60 mL/min Glucose 115 mg/dL High 74-106 If >60 mL/min 53 Potassium 3.8 mmol/L 3.5-5.1 SGPT/Alt 72 U/L 12-78 Sgot/Ast 50 U/L High 15-37 Sodium 138 mmol/L 136-145 Total Protein 7.3 g/dL 6.4-8.2 Microalbumin,Random 01/18/2017 N2N/CCD Import Microalbumin,Urine < 5.0 Urine mg/L Laboratory test finding 10/18/2016 N2N/CCD Import Hemoglobin A1c 6.5 % High 54 Lipid Panel 10/18/2016 N2N/CCD Import Cholesterol 137 mg/dL 55 HDL Cholesterol 40.1 mg/dL 56 LDL Cholesterol 71 mg/dL 57 Triglycerides 129 mg/dL 58 PSA Free And Total 10/18/2016 N2N/CCD Import PSA Free <0.1 ng/mL PSA Free/Total See Comment ratio 59 PSA Total 0.60 ng/mL Microalbumin,Random Urine 07/20/2016 N2N/CCD Import @[facility] Pat Id: [id number] @[facility] Req #: [id number] 1 Microalbumin,Urine 23.1 mg/L Laboratory test finding 07/20/2016 N2N/CCD Import @[facility] Pat Id: [id number] @[facility] Req #: [id number] 1 Free T3 2.67 pg/mL 2.18-3.98 Glycohemoglobin (A1c) 6.3 % 4.2-6.3 61 Is Patient Fasting? Non-Fasting Reflex add FT3? Y Reflex add FT4? N Thyroid Stim Hormone 5.78 uIU/mL High 0.3-4.2 eAG 134 mg/dL Comprehensive Metabolic Panel 07/20/2016 N2N/CCD Import @[facility] Pat Id: [id number] @[facility] Req #: [id number] 1 Alb/Glob 1.1 ratio Albumin 4.1 g/dL 3.4-5 Alkaline Phosphatase 67 U/L 45-117 Anion Gap 8 mEq/L 8-16 BUN 32 mg/dL High 7-18 BUN/Creat 32.0 ratio Bilirubin,Total 0.7 mg/dL 0.2-1 Calcium 8.8 mg/dL 8.5-10.1 Carbon Dioxide 26 mmol/L 21-32 Chloride 104 mmol/L 98-107 Creatinine 1.0 mg/dL 0.6-1.3 Globulin 3.7 g/dL 1.9-4.3 Glom Filtration Rate, Estimate >60 mL/min Glucose 104 mg/dL 74-106 If >60 mL/min 62 Is Patient Fasting? Non-Fasting Potassium 4.0 mmol/L 3.5-5.1 Reflex add FT3? Y Reflex add FT4? N SGPT/Alt 61 U/L 12-78 Sgot/Ast 41 U/L High 15-37 Sodium 138 mmol/L 136-145 Total Protein 7.8 g/dL 6.4-8.2 LDL Cholesterol Profile 04/21/2016 N2N/CCD Import Cholesterol 142 mg/dL 63 HDL Cholesterol 45 mg/dL 64 LDL-Cholesterol 83 mg/dL 65 Triglycerides 69 mg/dL 66 Comprehensive Metabolic Panel 04/21/2016 N2N/CCD Import Alb/Glob 1.1 ratio Albumin 4.0 g/dL 3.4-5 Alkaline Phosphatase 72 U/L 45-117 Anion Gap 6 mEq/L Low 8-16 BUN 25 mg/dL High 7-18 BUN/Creat 20.8 ratio Bilirubin,Total 0.8 mg/dL 0.2-1 Calcium 9.1 mg/dL 8.5-10.1 Carbon Dioxide 28 mmol/L 21-32 Chloride 104 mmol/L 98-107 Creatinine 1.2 mg/dL 0.6-1.3 Globulin 3.5 g/dL 1.9-4.3 Glom Filtration Rate, Estimate >60 mL/min Glucose 137 mg/dL High 74-106 If >60 mL/min 67 Potassium 4.1 mmol/L 3.5-5.1 SGPT/Alt 96 U/L High 12-78 Sgot/Ast 51 U/L High 15-37 Sodium 138 mmol/L 136-145 Total Protein 7.5 g/dL 6.4-8.2 Laboratory test 04/21/2016 N2N/[facility] Import Glycohemoglobin (A1c) 6.5 % High 4.2-6.3 68 finding Microalbumin,Random Urine < 6.0 mg/L Thyroid Stim Hormone 6.32 uIU/mL High 0.3-4.2 eAG 140 mg/dL Laboratory test 02/18/2016 N2N/[facility] Import Point of Care 148 mg/dL High 74 -106 69 finding Glucose Laboratory test 01/07/2016 N2N/[facility] Import Glycohemoglobin 5.9 % 4.2-6.3 70 finding (A1c) eAG 123 mg/dL Laboratory test 01/07/2016 N2N/[facility] Import Microalbumin,Random Urine < 5.0 mg/L finding Comprehensive 01/07/2016 N2N/[facility] Import Alb/Glob 1.1 ratio Metabolic Panel Albumin 3.9 g/dL 3.4-5 Alkaline Phosphatase 60 U/L 45-117 Anion Gap 7 mEq/L Low 8-16 BUN 31 mg/dL High 7-18 BUN/Creat 28.1 ratio Bilirubin,Total 0.7 mg/dL 0.2-1 Calcium 8.4 mg/dL Low 8.5-10.1 Carbon Dioxide 29 mmol/L 21-32 Chloride 102 mmol/L 98-107 Creatinine 1.1 mg/dL 0.6-1.3 Globulin 3.5 g/dL 1.9-4.3 Glom Filtration Rate, Estimate >60 mL/min Glucose 90 mg/dL 74-106 If >60 mL/min 71 Potassium 3.9 mmol/L 3.5-5.1 SGPT/Alt 79 U/L High 12-78 Sgot/Ast 43 U/L High 15-37 Sodium 138 mmol/L 136-145 Total Protein 7.4 g/dL 6.4-8.2 LDL Cholesterol Profile 07/18/2015 N2N/[facility] Import Cholesterol 169 mg/dL 72 HDL Cholesterol 54 mg/dL 73 LDL-Cholesterol 103 mg/dL 74 Triglycerides 59 mg/dL 75 Laboratory test 07/18/2015 [facility] Import C-Reactive 1.45 mg/L finding Protein,Cardiac Glycohemoglobin (A1c) 6.3 % 4.2-6.3 76 Homocyst(E)Ine, Plasma 79.5 umol/L High 0-15 77 Microalbumin,Random Urine < 6.0 mg/L Prostate Specific Antigen 0.36 ng/mL 78 eAG 134 mg/dL CBC 07/18/2015 N2N/CCD Import Hematocrit 43.7 % 38-48 Hemoglobin 15.1 gm/dL 12.8-17 Mean Cell Volume 92.8 fl 80-96 Mean Corpuscular HGB 32.1 pg 27-33 Mean Corpuscular HGB Conc 34.6 g/dL 31.7-36 Mean Platelet Volume 9.3 fL 6.6-10.6 Platelet Count 171 K/uL 150-400 Red Blood Count 4.71 M/uL 4.2-5.8 Red Cell Distri Width %CV 13.0 % 11.6-15.8 White Blood Count 4.8 K/uL 3.4-10.5 Comprehensive Metabolic Panel 07/18/2015 N2N/[facility] Import Alb/Glob 1.2 ratio Albumin 3.9 g/dL 3.4-5 Alkaline Phosphatase 72 U/L 45-117 Anion Gap 7 mEq/L Low 8-16 BUN 32 mg/dL High 7-18 BUN/Creat 26.6 ratio Bilirubin,Total 0.9 mg/dL 0.2-1 Calcium 8.8 mg/dL 8.5-10.1 Carbon Dioxide 26 mmol/L 21-32 Chloride 104 mmol/L 98-107 Creatinine 1.2 mg/dL 0.6-1.3 Globulin 3.3 g/dL 1.9-4.3 Glom Filtration Rate, Estimate >60 mL/min Glucose 80 mg/dL 74-106 If >60 mL/min 79 Potassium 3.8 mmol/L 3.5-5.1 SGPT/Alt 71 U/L 12-78 Sgot/Ast 53 U/L High 15-37 Sodium 137 mmol/L 136-145 Total Protein 7.2 g/dL 6.4-8.2 Laboratory test 12/07/2014 N2N/[facility] Import Glycohemoglobin (A1c) 6.4 % High 4.2-6.3 80 finding eAG 137 mg/dL Comprehensive Metabolic Panel 12/07/2014 N2N/[facility] Import Alb/Glob 1.1 ratio Albumin 3.5 g/dL 3.4-5 Alkaline Phosphatase 80 U/L 45-117 Anion Gap 11 mEq/L 8-16 BUN 27 mg/dL High 7-18 BUN/Creat 24.5 ratio Bilirubin,Total 0.6 mg/dL 0.2-1 Calcium 8.4 mg/dL Low 8.5-10.1 Carbon Dioxide 26 mmol/L 21-32 Chloride 105 mmol/L 98-107 Creatinine 1.1 mg/dL 0.6-1.3 Globulin 3.3 g/dL 1.9-4.3 Glom Filtration Rate, Estimate >60 mL/min Glucose 157 mg/dL High 74-106 If >60 mL/min 81 Potassium 4.3 mmol/L 3.5-5.1 SGPT/Alt 69 U/L 12-78 Sgot/Ast 37 U/L 15-37 Sodium 138 mmol/L 136-145 Total Protein 6.8 g/dL 6.4-8.2 Laboratory test 09/05/2014 [facility] Import Glycohemoglobin (A1c) 6.1 % 4.2-6.3 82 finding Microalbumin,Random Urine 7.2 mg/L eAG 128 mg/dL CBC 09/05/2014 [facility] Import Hematocrit 45.9 % 38-48 Hemoglobin 16.3 gm/dL 12.8-17 Mean Cell Volume 91.3 fl 80-96 Mean Corpuscular HGB 32.4 pg 27-33 Mean Corpuscular HGB Conc 35.5 g/dL 31.7-36 Mean Platelet Volume 9.6 fL 6.6-10.6 Platelet Count 190 K/uL 150-400 Red Blood Count 5.03 M/uL 4.2-5.8 Red Cell Distri Width %CV 13.1 % 11.6-15.8 White Blood Count 4.7 K/uL 3.4-10.5 Comprehensive Metabolic Panel 09/05/2014 [facility] Import Alb/Glob 1.2 ratio Albumin 4.2 g/dL 3.4-5 Alkaline Phosphatase 71 U/L 45-117 Anion Gap 15 mEq/L 8-16 BUN 28 mg/dL High 7-18 BUN/Creat 28.0 ratio Bilirubin,Total 0.9 mg/dL 0.2-1 Calcium 9.5 mg/dL 8.5-10.1 Carbon Dioxide 26 mmol/L 21-32 Chloride 102 mmol/L 98-107 Creatinine 1.0 mg/dL 0.6-1.3 Globulin 3.4 g/dL 1.9-4.3 Glom Filtration Rate, Estimate >60 mL/min Glucose 101 mg/dL 74-106 If >60 mL/min 83 Potassium 3.9 mmol/L 3.5-5.1 SGPT/Alt 65 U/L 12-78 Sgot/Ast 35 U/L 15-37 Sodium 139 mmol/L 136-145 Total Protein 7.6 g/dL 6.4-8.2 LDL Cholesterol Profile 09/05/2014 [facility] Import Cholesterol 176 mg/dL 84 HDL Cholesterol 54 mg/dL 85 LDL-Cholesterol 110 mg/dL 86 Triglycerides 59 mg/dL 87 Comprehensive Metabolic Panel 05/20/2014 N2N/[facility] Import Alb/Glob 1.1 ratio Albumin 3.5 g/dL 3.5-5 Alkaline Phosphatase 78 U/L 50-136 Anion Gap 12 mEq/L 8-16 BUN 23 mg/dL 5-23 BUN/Creat 23.0 ratio Bilirubin,Total 0.4 mg/dL 0.2-1.2 Calcium 8.8 mg/dL 8.5-10.1 Carbon Dioxide 25 mEq/L 18-29 Chloride 106 mmol/L 98-107 Creatinine 1.0 mg/dL 0.5-1.4 Globulin 3.3 g/dL 1.9-4.3 Glom Filtration Rate, Estimate >60 mL/min Glucose 141 mg/dL High 76-115 If >60 mL/min 88 Potassium 4.2 mmol/L 3.5-5.1 SGPT/Alt 52 U/L 30-65 Sgot/Ast 24 U/L 16-40 Sodium 139 mmol/L 136-145 Total Protein 6.8 g/dL 6.3-8 LDL Cholesterol Profile 05/20/2014 [facility] Import Cholesterol 151 mg/dL 120-200 HDL Cholesterol 53 mg/dL 29-83 LDL-Cholesterol 86 mg/dL 62-185 Triglycerides 62 mg/dL 16-231 Laboratory test finding 05/20/2014 N2N/[facility] Import Comment See Note 89 Glycohemoglobin (A1c) 6.3 % High 4.8-6 90 Microalbumin,Random Urine < 6.0 mg/L 0-18.5 Testosterone,Serum 480 ng/dL 348-1197 eAG 134 mg/dL Laboratory test 11/02/2013 [facility] Import Glycohemoglobin (A1c) 6.4 % High 4.8-6 91 finding Microalbumin,Random Urine < 6.0 mg/L 0-18.5 eAG 137 mg/dL Comprehensive Metabolic Panel 11/02/2013 [facility] Import Alb/Glob 1.1 ratio Albumin 4.0 g/dL 3.5-5 Alkaline Phosphatase 96 U/L 50-136 Anion Gap 13 mEq/L 8-16 BUN 28 mg/dL High 5-23 BUN/Creat 23.3 ratio Bilirubin,Total 0.8 mg/dL 0.2-1.2 Calcium 9.3 mg/dL 8.5-10.1 Carbon Dioxide 28 mEq/L 18-29 Chloride 99 mmol/L 98-107 Creatinine 1.2 mg/dL 0.5-1.4 Globulin 3.7 g/dL 1.9-4.3 Glom Filtration Rate, Estimate >60 mL/min Glucose 102 mg/dL 76-115 If >60 mL/min 92 Potassium 4.0 mmol/L 3.5-5.1 SGPT/Alt 79 U/L High 30-65 Sgot/Ast 39 U/L 16-40 Sodium 136 mmol/L 136-145 Total Protein 7.7 g/dL 6.3-8 LDL Cholesterol Profile 11/02/2013 [facility] Import Cholesterol 170 mg/dL 120-200 HDL Cholesterol 49 mg/dL 29-83 LDL-Cholesterol 107 mg/dL 62-185 Triglycerides 71 mg/dL 16-231 Urinalysis With 04/25/2013 [facility] Import Urine Bacteria Very Few [place] Microscopic Urine Bilirubin - Dipstick Negative Urine Blood Negative Urine Clarity SL Cloudy Urine Color Yellow Urine Epithelial Cells Very Few [place]/lpf Urine Glucose - Dipstick 250 mg/dL High Urine Ketone Negative mg/dL Urine Leuk Esterase Negative Urine Nitrite - Dipstick Negative Urine PH 5.5 1 Low 6.5-7.5 Urine Protein - Dipstick Negative mg/dL Urine RBC None Seen rbc/hpf 0-7 Urine Specific [place] 1.025 1 1.01-1.03 Urine Urobilinogen - Dipstick 0.2 E.U./dL 0.2-1 Urine WBC None Seen wbc/hpf 0-7 Imaging finding 04/18/2013 N2N/CCD Import CXR <pending> Laboratory test 04/18/2013 N2N/CCD Import Glycohemoglobin (A1c) 7.2 % High 4.8-6 93 finding eAG 160 mg/dL Basic Metabolic Panel 04/18/2013 N2N/CCD Import Anion Gap 16 mEq/L 8-16 BUN 27 mg/dL High 5-23 BUN/Creat 22.5 ratio Calcium 9.5 mg/dL 8.5-10.1 Carbon Dioxide 27 mEq/L 18-29 Chloride 101 mmol/L 98-107 Creatinine 1.2 mg/dL 0.5-1.4 Glom Filtration Rate, Estimate >60 mL/min Glucose 148 mg/dL High 76-115 If >60 mL/min 94 Potassium 4.4 mmol/L 3.5-5.1 Sodium 140 mmol/L 136-145 CBS W/Automated Diff 04/18/2013 N2N/CCD Import Bas% 0.4 % 0.1-1 Baso # 0.02 K/uL Low 0.1-0.2 Eo% 1.8 % 0-5 Eos # 0.08 K/uL 0-0.5 Hematocrit 45.9 % 38-48 Hemoglobin 16.1 gm/dL 12.8-17 Lymph # 1.23 K/uL 1.2-4 Lymph % 27.4 % 17-56 Mean Cell Volume 90.9 fl 80-96 Mean Corpuscular HGB 31.9 pg 27-33 Mean Corpuscular HGB Conc 35.1 g/dL 31.7-36 Mean Platelet Volume 9.4 fL 6.6-10.6 [place] # 0.42 K/uL 0-0.6 [place] % 9.4 % 0-10 Neut# 2.74 K/uL 1.8-7 Neut% 61.0 % 33-73 Platelet Count 184 K/uL 150-400 Red Blood Count 5.05 M/uL 4.2-5.8 Red Cell Distri Width %CV 13.0 % 11.6-15.8 Red Cell Distri Width SD 41.7 fl 36-51 White Blood Count 4.5 K/uL 3.4-10.5 Laboratory test 04/12/2013 N2N/CCD Import Colonic Mucosa/Polyp See Note 95 finding Biopsy Urine Screen 04/11/2013 N2N/CCD Import Urine Bilirubin - Negative Dipstick Urine Blood Negative Urine Clarity Clear Urine Color Yellow Urine Glucose - Dipstick >=1000 mg/dL High Urine Ketone Negative mg/dL Urine Leuk Esterase Negative Urine Nitrite - Dipstick Negative Urine PH 5.5 1 Low 6.5-7.5 Urine Protein - Dipstick Negative mg/dL Urine Specific [place] 1.020 1 1.01-1.03 Urine Urobilinogen - Dipstick 0.2 E.U./dL 0.2-1 Laboratory test finding 12/09/2012 N2N/[facility] Import Antibody Detection See Note 96 Glycohemoglobin (A1c) 6.9 % High 4.8-6 97 Rapid Abdet See Note 98 eAG 151 mg/dL Basic Metabolic Panel 12/09/2012 N2N/[facility] Import Anion Gap 12 mEq/L 8-16 BUN 19 mg/dL 5-23 BUN/Creat 17.2 ratio Calcium 9.0 mg/dL 8.5-10.1 Carbon Dioxide 29 mEq/L 18-29 Chloride 101 mmol/L 98-107 Creatinine 1.1 mg/dL 0.5-1.4 Glom Filtration Rate, Estimate >60 mL/min Glucose 140 mg/dL High 76-115 If >60 mL/min 99 Potassium 3.9 mmol/L 3.5-5.1 Sodium 138 mmol/L 136-145 LDL Cholesterol Profile 12/09/2012 N2N/[facility] Import Cholesterol 161 mg/dL 120-200 HDL Cholesterol 52 mg/dL 29-83 LDL-Cholesterol 95 mg/dL 62-185 Triglycerides 68 mg/dL 16-231 Liver Function Tests 12/09/2012 N2N/[facility] Import Alb/Glob 1.2 ratio Albumin 4.0 g/dL 3.5-5 Alkaline Phosphatase 80 U/L 50-136 Bilirubin,Direct 0.2 mg/dL 0.1-0.4 Bilirubin,Indirect 0.8 mg/dL 0-0.9 Bilirubin,Total 1.0 mg/dL 0.2-1.2 Globulin 3.3 g/dL 1.9-4.3 SGPT/Alt 76 U/L High 30-65 Sgot/Ast 38 U/L 16-40 Total Protein 7.3 g/dL 6.3-8 Laboratory test 06/28/2012 N2N/CCD Import Glycohemoglobin (A1c) 6.4 % High 4.8-6 100 finding eAG 137 mg/dL Basic Metabolic Panel 06/28/2012 N2N/CCD Import Anion Gap 17 mEq/L High 8 -16 BUN 23 mg/dL 5-23 BUN/Creat 23.0 ratio Calcium 9.5 mg/dL 8.5-10.1 Carbon Dioxide 24 mEq/L 18-29 Chloride 100 mmol/L 98-107 Creatinine 1.0 mg/dL 0.5-1.4 Glom Filtration Rate, Estimate >60 mL/min Glucose 129 mg/dL High 76-115 If >60 mL/min 101 Potassium 4.5 mmol/L 3.5-5.1 Sodium 136 mmol/L 136-145 CBC 06/28/2012 N2N/CCD Import Hematocrit 46.8 % 38-48 Hemoglobin 16.6 gm/dL 12.8-17 Mean Cell Volume 91.8 fl 80-96 Mean Corpuscular HGB 32.5 pg 27-33 Mean Corpuscular HGB Conc 35.5 g/dL 31.7-36 Mean Platelet Volume 9.3 fL 6.6-10.6 Platelet Count 177 K/uL 150-400 Red Blood Count 5.10 M/uL 4.2-5.8 Red Cell Distri Width %CV 12.8 % 11.6-15.8 White Blood Count 4.7 K/uL 3.4-10.5 LDL Cholesterol Profile 06/28/2012 N2N/CCD Import Cholesterol 188 mg/dL 120-200 HDL Cholesterol 44 mg/dL 29-83 LDL-Cholesterol 118 mg/dL 62-185 Triglycerides 128 mg/dL 16-231 1 [employer]urb[employer] Electrical Engineer: [id number] Z00.01 Z12.5 E03.9 E78.5 I10 E11.40 3 Elevated levels of HbA1c suggest the need for more aggressive treatment of glycemia. The [place] [employer] recommends that a primary goal of therapy should be a HbA1c of <7% and that physicians should re-evaluate the treatment regimen in patients with HbA1c values consistently >8%. 4 THIS ASSAY IS NOT INTENDED A CANCER SCREENING TEST The concentration of PSA in a given specimen, determined with assays from different manufacturers, can vary due to differences in assay methods and reagent specificity. Values obtained from different assay methods cannot be used interchangeably. Method: Siemens Dimension [place] Chemiluminescent immunoassay. 5 Note: Persistent reduction for 3 months or more in an eGFR <60 mL/min/1.73 m2 defines CKD. Patients with eGFR values >/=60 mL/min/1.73 m2 may also have CKD if evidence of persistent proteinuria is present. The original MDRD equation for estimated GFR is not valid for patients less than 18 years of age. Additional information may be found at www.kdoqi.org. 6 Results confirmed on dilution. Performed at: RN - [facility] [address] [id number] [employer] Stapler: Gardenia Yo MD, Phone: [phone] 7 Reference Guidelines*: Desirable: ........... < 200 mg/dL Borderline High: ..... 200-239 mg/dL High: ................ >=240 mg/dL * The National Cholesterol Education Program (NCEP) 8 Reference Guidelines*: Low HDL: ..... < 40 mg/dL Normal: ..... 40-60 mg/dL Desirable: ... > 60 mg/dL *The National Cholesterol Education Program(NCEP) 9 Reference Guidelines*: Optimal:........... <100 mg/dL Near Optimal....... 100-129 mg/dL Borderline High.... 130-159 mg/dL High............... 160-189 mg/dL Very High.......... >=190 mg/dL * Source: National Cholesterol Education Program (NCEP) 10 Reference Guidelines*: Normal: ............. < 150 mg/dL Borderline High: .... 150-199 mg/dL High: ............... 200-499 mg/dL Very High: .......... > 500 mg/dL * Source: National Cholesterol Education Program (NCEP) 11 E11.9 12 Elevated levels of HbA1c suggest the need for more aggressive treatment of glycemia. The [place] [employer] recommends that a primary goal of therapy should be a HbA1c of <7% and that physicians should re-evaluate the treatment regimen in patients with HbA1c values consistently >8%. 13 Note: Persistent reduction for 3 months or more in an eGFR <60 mL/min/1.73 m2 defines CKD. Patients with eGFR values >/=60 mL/min/1.73 m2 may also have CKD if evidence of persistent proteinuria is present. The original MDRD equation for estimated GFR is not valid for patients less than 18 years of age. Additional information may be found at www.kdoqi.org. 14 Reference Guidelines*: Desirable: ........... < 200 mg/dL Borderline High: ..... 200-239 mg/dL High: ................ >=240 mg/dL * The National Cholesterol Education Program (NCEP) 15 Reference Guidelines*: Low HDL: ..... < 40 mg/dL Normal: ..... 40-60 mg/dL Desirable: ... > 60 mg/dL *The National Cholesterol Education Program(NCEP) 16 Reference Guidelines*: Optimal:........... <100 mg/dL Near Optimal....... 100-129 mg/dL Borderline High.... 130-159 mg/dL High............... 160-189 mg/dL Very High.......... >=190 mg/dL * Source: National Cholesterol Education Program (NCEP) 17 Reference Guidelines*: Normal: ............. < 150 mg/dL Borderline High: .... 150-199 mg/dL High: ............... 200-499 mg/dL Very High: .......... 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 Patients with eGFR values >/=60 mL/min/1.73 m2 may also have CKD if evidence of persistent proteinuria is present. The original MDRD equation for estimated GFR is not valid for patients less than 18 years of age. Additional information may be found at www.kdoqi.org. 21 Reference Guidelines*: Desirable: ........... < 200 mg/dL Borderline High: ..... 200-239 mg/dL High: ................ >=240 mg/dL * The National Cholesterol Education Program (NCEP) 22 Reference Guidelines*: Low HDL: ..... < 40 mg/dL Normal: ..... 40-60 mg/dL Desirable: ... > 60 mg/dL *The National Cholesterol Education Program(NCEP) 23 Reference Guidelines*: Optimal:........... <100 mg/dL Near Optimal....... 100-129 mg/dL Borderline High.... 130-159 mg/dL High............... 160-189 mg/dL Very High.......... >=190 mg/dL * Source: National Cholesterol Education Program (NCEP) 24 Reference Guidelines*: Normal: ............. < 150 mg/dL Borderline High: .... 150-199 mg/dL High: ............... 200-499 mg/dL Very High: .......... > 500 mg/dL * Source: National Cholesterol Education Program (NCEP) 25 THERAPEUTIC INR RANGE: 2.0 - 3.0 DVT, Pulmonary embolus, prophylaxis against venous thrombosis or systemic embolization in high risk patients. 2.5 - 3.5 Mechanical heart valves 26 E11.40,E03.9 27 Elevated levels of HbA1c suggest the need for more aggressive treatment of glycemia. The [place] [employer] recommends that a primary goal of therapy should be a HbA1c of <7% and that physicians should re-evaluate the treatment regimen in patients with HbA1c values consistently >8%. 28 E11.40, I10, E03.9, E78.5 29 Elevated levels of HbA1c suggest the need for more aggressive treatment of glycemia. The [place] [employer] recommends that a primary goal of therapy should be a HbA1c of <7% and that physicians should re-evaluate the treatment regimen in patients with HbA1c values consistently >8%. 30 Note: Persistent reduction for 3 months or more in an eGFR <60 mL/min/1.73 m2 defines CKD. Patients with eGFR values >/=60 mL/min/1.73 m2 may also have CKD if evidence of persistent proteinuria is present. The original MDRD equation for estimated GFR is not valid for patients less than 18 years of age. Additional information may be found at www.kdoqi.org. 31 Results confirmed on dilution. Performed at: RN - [facility] [address] [id number] S[employer] Stapler: Gardenia Yo MD, Phone: [phone] 32 Reference Guidelines*: Desirable: ........... < 200 mg/dL Borderline High: ..... 200-239 mg/dL High: ................ >=240 mg/dL * The National Cholesterol Education Program (NCEP) 33 Reference Guidelines*: Low HDL: ..... < 40 mg/dL Normal: ..... 40-60 mg/dL Desirable: ... > 60 mg/dL *The National Cholesterol Education Program(NCEP) 34 Reference Guidelines*: Optimal:........... <100 mg/dL Near Optimal....... 100-129 mg/dL Borderline High.... 130-159 mg/dL High............... 160-189 mg/dL Very High.......... >=190 mg/dL * Source: National Cholesterol Education Program (NCEP) 35 Reference Guidelines*: Normal: ............. < 150 mg/dL Borderline High: .... 150-199 mg/dL High: ............... 200-499 mg/dL Very High: .......... > 500 mg/dL * Source: National Cholesterol Education Program (NCEP) 36 E11.40 E03.9 E78.5 37 Elevated levels of HbA1c suggest the need for more aggressive treatment of glycemia. The [place] [employer] recommends that a primary goal of therapy should be a HbA1c of <7% and that physicians should re-evaluate the treatment regimen in patients with HbA1c values consistently >8%. 38 Note: Persistent reduction for 3 months or more in an eGFR <60 mL/min/1.73 m2 defines CKD. Patients with eGFR values >/=60 mL/min/1.73 m2 may also have CKD if evidence of persistent proteinuria is present. The original MDRD equation for estimated GFR is not valid for patients less than 18 years of age. Additional information may be found at www.kdoqi.org. 39 Reference Guidelines*: Desirable: ........... < 200 mg/dL Borderline High: ..... 200-239 mg/dL High: ................ >=240 mg/dL * The National Cholesterol Education Program (NCEP) 40 Reference Guidelines*: Low HDL: ..... < 40 mg/dL Normal: ..... 40-60 mg/dL Desirable: ... > 60 mg/dL *The National Cholesterol Education Program(NCEP) 41 Reference Guidelines*: Optimal:........... <100 mg/dL Near Optimal....... 100-129 mg/dL Borderline High.... 130-159 mg/dL High............... 160-189 mg/dL Very High.......... >=190 mg/dL * Source: National Cholesterol Education Program (NCEP) 42 Reference Guidelines*: Normal: ............. < 150 mg/dL Borderline High: .... 150-199 mg/dL High: ............... 200-499 mg/dL Very High: .......... > 500 mg/dL * Source: National Cholesterol Education Program (NCEP) 43 [id number] 44 SEE RESULT BELOW Name: JOCE UMAÑA : [address]: Elvin Hope MD Acct: [id number] Unit: [id number] AGE: 62 Location: [facility] Re06/15/17 SEX: M Status: DEP ER SPEC: [id number] EUSEBIO: 06/15/[address]: Elvin Hope MD REQ: [id number] RECD: 06/16/17 STATUS: COMP [facility] DR: Christopher Mathias MD _ SOURCE: [place] SPDESC:INDEX RHT ORDERED: MRSA/SA SSTI, Culture Stain COMMENTS: [id number] Verbal to [id number] by [id number] at 1318 on 06/16/17. Results read back accurately. Procedure Result Reported Site MRSA/S. aureus SSTI PCR Final 06/16/17- 1315 ML Organism 1 MRSA NEGATIVE Organism 2 S.AUREUS POSITIVE Wound/Misc Gram Stain Final 06/16/17- 1200 ML 1+ Epithelial Cells 4+ Neutrophils 3+ Gram Positive Cocci Wound/Misc Culture Final 06/18/17- 0920 ML Organism 1 STAPHYLOCOCCUS AUREUS Quantity 3+ Organism 2 ENTEROBACTER CLOACAE Quantity 1+ 1. STAPHYLOCOCCUS AUREUS M.I.C. RX --------- ------ Penicillin 0.25 R Clindamycin R This isolate is presumed to be resistant based on detection of inducible Clindamycin resistance. Clindamycin may still be effective in some patients. Erythromycin >=8 R CONTINUED ON NEXT PAGE * ML=Testing performed at Main Lab DEPARTMENT OF PATHOLOGY, [address] [place] [address] Marky Marroquin M.D. Director [facility] # [id number] Patient: JOCE UMAÑA [id number] (Continued) Specimen: [id number] Collected: 06/15/17 Received: 06/16/17-1033 (Continued) Procedure Result Reported Site Wound/Misc Culture Final (continued) 06/18/17- 919 1. STAPHYLOCOCCUS AUREUS (continued) M.I.C. RX --------- ------ Gentamicin <=0.5 S Linezolid 2 S Nitrofurantoin <=16 S Oxacillin 0.5 S * Quinupristin/Dalfopristin 0.5 S Rifampin <=0.5 S Tetracycline <=1 S Doxycycline - Deduced S * Minocycline - Deduced S Trimethoprim/Sulfamethoxazole <=10 S Vancomycin 1 S Imipenem-Deduced S * Ampicillin/Sulbactam-Deduced S Cefazolin-Deduced S 2. ENTEROBACTER CLOACAE M.I.C. RX --------- ------ Cefazolin >=64 R Cefepime <=1 S Ceftriaxone <=1 S Ciprofloxacin <=0.25 S Gentamicin <=1 S Levofloxacin <=0.12 S Meropenem <=0.25 S Nitrofurantoin 64 I Tetracycline <=1 S Trimethoprim/Sulfamethoxazole <=20 S Amoxicillin/Clavulanic Acid >=32 R Aztreonam <=1 S CONTINUED ON NEXT PAGE * ML=Testing performed at Main Lab DEPARTMENT OF PATHOLOGY, [address] [place] [address] Marky Marroquin M.D. Director [facility] # [id number] Patient: JOCE UMAÑA [id number] (Continued) Specimen: [id number] Collected: 06/15/17 Received: 06/16/17 (Continued) Procedure Result Reported Site Wound/Misc Culture Final (continued) * These antibiotics are not available in the [facility] Formulary Contact the Microbiology Department for any additional antibiotic reporting. Contact the Microbiology Department for any additional antibiotic reporting. * ML - [facility]) . END OF REPORT * ML=Testing performed at Main Lab DEPARTMENT OF PATHOLOGY, [address] [place] [address] Marky Marroquin M.D. Director [facility] # [id number] 45 SEE RESULT BELOW Name: JOCE UMAÑA : [address]: Elvin Hope MD Acct: [id number] Unit: [id number] AGE: 62 Location: [facility] Re06/15/17 SEX: M Status: DEP ER SPEC: [id number] EUSEBIO: 06/15/17 [facility] DR: Elvin Hope MD REQ: [id number] RECD: 06/16/17 STATUS: RES OTHR DR: Christopher Mathias MD _ SOURCE: [place] SPDESC:INDEX RHT ORDERED: MRSA/SA SSTI, Culture Stain COMMENTS: [id number] Procedure Result Reported Site MRSA/S. aureus SSTI PCR PENDING Wound/Misc Gram Stain Final 06/16/17- 1200 ML 1+ Epithelial Cells 4+ Neutrophils 3+ Gram Positive Cocci Wound/Misc Culture PENDING * ML - MAIN LAB ([facility]) . END OF REPORT * ML=Testing performed at Main Lab DEPARTMENT OF PATHOLOGY, [address] [place] [address] Marky Marroquin M.D. Director [facility] # [id number] 46 E11.40, R53.83 47 Elevated levels of HbA1c suggest the need for more aggressive treatment of glycemia. The [place] [employer] recommends that a primary goal of therapy should be a HbA1c of <7% and that physicians should re-evaluate the treatment regimen in patients with HbA1c values consistently >8%. 48 ELEVATED BP AND LEFT ARM PAIN 49 0.0 - 0.045 ng/mL: Normal 0.046 - 0.5 ng/mL: Suggestive 0.6 - 1.5 ng/mL: Consistent 50 Note: Persistent reduction for 3 months or more in an eGFR <60 mL/min/1.73 m2 defines CKD. Patients with eGFR values >/=60 mL/min/1.73 m2 may also have CKD if evidence of persistent proteinuria is present. The original MDRD equation for estimated GFR is not valid for patients less than 18 years of age. Additional information may be found at www.kdoqi.org. 51 E11.40 52 Elevated levels of HbA1c suggest the need for more aggressive treatment of glycemia. The [place] [employer] recommends that a primary goal of therapy should be a HbA1c of <7% and that physicians should re-evaluate the treatment regimen in patients with HbA1c values consistently >8%. 53 Note: Persistent reduction for 3 months or more in an eGFR <60 mL/min/1.73 m2 defines CKD. Patients with eGFR values >/=60 mL/min/1.73 m2 may also have CKD if evidence of persistent proteinuria is present. The original MDRD equation for estimated GFR is not valid for patients less than 18 years of age. Additional information may be found at www.kdoqi.org. 54 Therapeutic target for the treatment of diabetes Mellitus patients is <7% HBA1C, and in selective patients <6.0%.Please refer to [place] [employer] Diabetic care guidelines for further information. 55 Desirable <200 Borderline high 200-239 High >239 56 Low <40 Desirable: 40-60 High: >60 57 Desirable: <100 mg/dL Near Optimal: 100-129 mg/dL Borderline High: 130-159 mg/dL High: 160-189 mg/dL Very High: >189 mg/dL 58 Desirable <150 Borderline high 150-199 High 200-499 Very High >500 59 Ratio was not calculated because free PSA is less than 0.1 ng/mL Ratio not calculated because clinical usefulness is not defined except in range of total PSA 4.0-10.0 ng/mL. ADDITIONAL INFORMATION The testing method is an electrochemiluminescence assay manufactured by [employer] [employer] and performed on the Modular or Renato system. Values obtained with different assay methods or kits may be different and cannot be used interchangeably. Test results cannot be interpreted as absolute evidence for the presence or absence of malignant disease. Test Performed by: [address] [address] Cager Operator: Mario Ty II, M.D., Ph.D. 60 E11.40 E03.9 I10 61 Elevated levels of HbA1c suggest the need for more aggressive treatment of glycemia. The [place] [employer] recommends that a primary goal of therapy should be a HbA1c of <7% and that physicians should re-evaluate the treatment regimen in patients with HbA1c values consistently >8%. 62 Note: Persistent reduction for 3 months or more in an eGFR <60 mL/min/1.73 m2 defines CKD. Patients with eGFR values >/=60 mL/min/1.73 m2 may also have CKD if evidence of persistent proteinuria is present. The original MDRD equation for estimated GFR is not valid for patients less than 18 years of age. Additional information may be found at www.kdoqi.org. 63 Reference Guidelines*: Desirable: ........... < 200 mg/dL Borderline High: ..... 200-239 mg/dL High: ................ >=240 mg/dL * The National Cholesterol Education Program (NCEP) 64 Reference Guidelines*: Low HDL: ..... < 40 mg/dL Normal: ..... 40-60 mg/dL Desirable: ... > 60 mg/dL *The National Cholesterol Education Program(NCEP) 65 Reference Guidelines*: Optimal:........... <100 mg/dL Near Optimal....... 100-129 mg/dL Borderline High.... 130-159 mg/dL High............... 160-189 mg/dL Very High.......... >=190 mg/dL * Source: National Cholesterol Education Program (NCEP) 66 Reference Guidelines*: Normal: ............. < 150 mg/dL Borderline High: .... 150-199 mg/dL High: ............... 200-499 mg/dL Very High: .......... > 500 mg/dL * Source: National Cholesterol Education Program (NCEP) 67 Note: Persistent reduction for 3 months or more in an eGFR <60 mL/min/1.73 m2 defines CKD. Patients with eGFR values >/=60 mL/min/1.73 m2 may also have CKD if evidence of persistent proteinuria is present. The original MDRD equation for estimated GFR is not valid for patients less than 18 years of age. Additional information may be found at www.kdoqi.org. 68 Elevated levels of HbA1c suggest the need for more aggressive treatment of glycemia. The [place] [employer] recommends that a primary goal of therapy should be a HbA1c of <7% and that physicians should re-evaluate the treatment regimen in patients with HbA1c values consistently >8%. 69 Wind Turbine Electrical Engineer: [id number] SHONNA WALLACE 70 Elevated levels of HbA1c suggest the need for more aggressive treatment of glycemia. The [place] [employer] recommends that a primary goal of therapy should be a HbA1c of <7% and that physicians should re-evaluate the treatment regimen in patients with HbA1c values consistently >8%. 71 Note: Persistent reduction for 3 months or more in an eGFR <60 mL/min/1.73 m2 defines CKD. Patients with eGFR values >/=60 mL/min/1.73 m2 may also have CKD if evidence of persistent proteinuria is present. The original MDRD equation for estimated GFR is not valid for patients less than 18 years of age. Additional information may be found at www.kdoqi.org. 72 Reference Guidelines*: Desirable: ........... < 200 mg/dL Borderline High: ..... 200-239 mg/dL High: ................ >=240 mg/dL * The National Cholesterol Education Program (NCEP) 73 Reference Guidelines*: Low HDL: ..... < 40 mg/dL Normal: ..... 40-60 mg/dL Desirable: ... > 60 mg/dL *The National Cholesterol Education Program(NCEP) 74 Reference Guidelines*: Optimal:........... <100 mg/dL Near Optimal....... 100-129 mg/dL Borderline High.... 130-159 mg/dL High............... 160-189 mg/dL Very High.......... >=190 mg/dL * Source: National Cholesterol Education Program (NCEP) 75 Reference Guidelines*: Normal: ............. < 150 mg/dL Borderline High: .... 150-199 mg/dL High: ............... 200-499 mg/dL Very High: .......... > 500 mg/dL * Source: National Cholesterol Education Program (NCEP) 76 Elevated levels of HbA1c suggest the need for more aggressive treatment of glycemia. The [place] [employer] recommends that a primary goal of therapy should be a HbA1c of <7% and that physicians should re-evaluate the treatment regimen in patients with HbA1c values consistently >8%. 77 Performed at: - [facility] [address] [id number] Siding Stapler: Gardenia Yo MD, Phone: [phone] 78 THIS ASSAY IS NOT INTENDED A CANCER SCREENING TEST The concentration of PSA in a given specimen, determined with assays from different manufacturers, can vary due to differences in assay methods and reagent specificity. Values obtained from different assay methods cannot be used interchangeably. 79 Note: Persistent reduction for 3 months or more in an eGFR <60 mL/min/1.73 m2 defines CKD. Patients with eGFR values >/=60 mL/min/1.73 m2 may also have CKD if evidence of persistent proteinuria is present. The original MDRD equation for estimated GFR is not valid for patients less than 18 years of age. Additional information may be found at www.kdoqi.org. 80 Elevated levels of HbA1c suggest the need for more aggressive treatment of glycemia. The [place] [employer] recommends that a primary goal of therapy should be a HbA1c of <7% and that physicians should re-evaluate the treatment regimen in patients with HbA1c values consistently >8%. 81 Note: Persistent reduction for 3 months or more in an eGFR <60 mL/min/1.73 m2 defines CKD. Patients with eGFR values >/=60 mL/min/1.73 m2 may also have CKD if evidence of persistent proteinuria is present. The original MDRD equation for estimated GFR is not valid for patients less than 18 years of age. Additional information may be found at www.kdoqi.org. 82 Elevated levels of HbA1c suggest the need for more aggressive treatment of glycemia. The [place] [employer] recommends that a primary goal of therapy should be a HbA1c of <7% and that physicians should re-evaluate the treatment regimen in patients with HbA1c values consistently >8%. 83 Note: Persistent reduction for 3 months or more in an eGFR <60 mL/min/1.73 m2 defines CKD. Patients with eGFR values >/=60 mL/min/1.73 m2 may also have CKD if evidence of persistent proteinuria is present. The original MDRD equation for estimated GFR is not valid for patients less than 18 years of age. Additional information may be found at www.kdoqi.org. 84 Reference Guidelines*: Desirable: ........... < 200 mg/dL Borderline High: ..... 200-239 mg/dL High: ................ >=240 mg/dL * The National Cholesterol Education Program (NCEP) 85 Reference Guidelines*: Low HDL: ..... < 40 mg/dL Normal: ..... 40-60 mg/dL Desirable: ... > 60 mg/dL *The National Cholesterol Education Program(NCEP) 86 Reference Guidelines*: Optimal:........... <100 mg/dL Near Optimal....... 100-129 mg/dL Borderline High.... 130-159 mg/dL High............... 160-189 mg/dL Very High.......... >=190 mg/dL * Source: National Cholesterol Education Program (NCEP) 87 Reference Guidelines*: Normal: ............. < 150 mg/dL Borderline High: .... 150-199 mg/dL High: ............... 200-499 mg/dL Very High: .......... > 500 mg/dL * Source: National Cholesterol Education Program (NCEP) 88 Note: Persistent reduction for 3 months or more in an eGFR <60 mL/min/1.73 m2 defines CKD. Patients with eGFR values >/=60 mL/min/1.73 m2 may also have CKD if evidence of persistent proteinuria is present. The original MDRD equation for estimated GFR is not valid for patients less than 18 years of age. Additional information may be found at www.kdoqi.org. 89 Adult male reference interval is based on a population of lean males up to 40 years old. Performed at: RN - [facility] [address] [id number] Siding Stapler: Gardenia Yo MD, Phone: [phone] 90 A1c value between 5.7% and 6.4% is considered at increased risk for diabetes. A1c value greater than 6.5 % is considered essentially diagnostic for Type II diabetes. Current guidelines recommend a treatment goal of <7% for diabetic patients. This method will measure glycosylated hemoglobin variants, HbS, HbG, HbH, HbWayne, HbC, HbE, etc. Other hemoglobin- opathies may give incorrect results with this test. 91 A1c value between 5.7% and 6.4% is considered at increased risk for diabetes. A1c value greater than 6.5 % is considered essentially diagnostic for Type II diabetes. Current guidelines recommend a treatment goal of <7% for diabetic patients. This method will measure glycosylated hemoglobin variants, HbS, HbG, HbH, HbWayne, HbC, HbE, etc. Other hemoglobin- opathies may give incorrect results with this test. 92 Note: Persistent reduction for 3 months or more in an eGFR <60 mL/min/1.73 m2 defines CKD. Patients with eGFR values >/=60 mL/min/1.73 m2 may also have CKD if evidence of persistent proteinuria is present. The original MDRD equation for estimated GFR is not valid for patients less than 18 years of age. Additional information may be found at www.kdoqi.org. 93 A1c value between 5.7% and 6.4% is considered at increased risk for diabetes. A1c value greater than 6.5 % is considered essentially diagnostic for Type II diabetes. Current guidelines recommend a treatment goal of <7% for diabetic patients. This method will measure glycosylated hemoglobin variants, HbS, HbG, HbH, HbWayne, HbC, HbE, etc. Other hemoglobin- opathies may give incorrect results with this test. 94 Note: Persistent reduction for 3 months or more in an eGFR <60 mL/min/1.73 m2 defines CKD. Patients with eGFR values >/=60 mL/min/1.73 m2 may also have CKD if evidence of persistent proteinuria is present. The original MDRD equation for estimated GFR is not valid for patients less than 18 years of age. Additional information may be found at www.kdoqi.org. 95 OPERATION/PROCEDURE Colonoscopy with biopsies DIAGNOSIS: "COLON, RANDOM BIOPSIES": BENIGN, NONDYSPLASTIC AND NONINFLAMED COLONIC MUCOSA. Reymundo GROSS "RANDOM COLON BIOPSIES". The specimen is received in an appropriately labeled container. This contains two rounded carlos colored pieces of soft tissue measuring up to 0.5 cm.; filtered and submitted in toto within a single cassette. CRISTOPHER/noa MICROSCOPIC Sections reveal mildly edematous fragments of colonic mucosa. There is no significant inflammation. PRE OPERATIVE DIAGNOSIS Change in bowels REVIEW CODE CODE: I ROMEL Falk MD 04/16/13 1301 96 No reportable results 97 A1c value between 5.7% and 6.4% is considered at increased risk for diabetes. A1c value greater than 6.5 % is considered essentially diagnostic for Type II diabetes. Current guidelines recommend a treatment goal of <7% for diabetic patients. This method will measure glycosylated hemoglobin variants, HbS, HbG, HbH, HbWayne, HbC, HbE, etc. Other hemoglobin- opathies may give incorrect results with this test. 98 12/09/12 LAB.OPT ORDERED WRONG 99 Note: Persistent reduction for 3 months or more in an eGFR <60 mL/min/1.73 m2 defines CKD. Patients with eGFR values >/=60 mL/min/1.73 m2 may also have CKD if evidence of persistent proteinuria is present. The original MDRD equation for estimated GFR is not valid for patients less than 18 years of age. Additional information may be found at www.kdoqi.org. 100 A1c value between 5.7% and 6.4% is considered at increased risk for diabetes. A1c value greater than 6.5 % is considered essentially diagnostic for Type II diabetes. Current guidelines recommend a treatment goal of <7% for diabetic patients. This method will measure glycosylated hemoglobin variants, HbS, HbG, HbH, HbWayne, HbC, HbE, etc. Other hemoglobin- opathies may give incorrect results with this test. 101 Note: Persistent reduction for 3 months or more in an eGFR <60 mL/min/1.73 m2 defines CKD. Patients with eGFR values >/=60 mL/min/1.73 m2 may also have CKD if evidence of persistent proteinuria is present. The original MDRD equation for estimated GFR is not valid for patients less than 18 years of age. Additional information may be found at www.kdoqi.org. Procedures Date Code Description Status 12/29/2018 469530701 Diabetic Foot Exam Completed 10/02/2018 [id number] Diabetic Foot Exam Completed 03/23/2018 [id number] Diabetic Foot Exam Completed 03/15/2018 24260 EKG Tracing & Interpretation Completed 03/10/2018 [id number] Diabetic Foot Exam Completed 07/21/2016 34812 Pure Tone Hearing Test, Air Completed 07/16/2015 32458 Pure Tone Hearing Test, Air Completed 05/27/2014 07174 Pure Tone Hearing Test, Air Completed 05/24/2013 66589 Pure Tone-Air Condition Only Completed 04/12/2013 49950 Colonoscopy Flexible Diagnostic Completed 04/12/2013 [id number] Colonoscopy Completed 04/11/2013 01878 EKG Tracing & Interpretation Completed 12/07/2012 55338 Pure Tone-Air Condition Only Completed 10/02/2009 93922 Visual funct screen test, automated Completed 10/02/2009 80583 Pure Tone-Air Condition Only Completed 09/10/2009 61927 EKG Tracing & Interpretation Completed Encounters Type Date Location Provider Dx Diagnosis Office Visit 12/28/2018 [facility] Christopher E11.9 Type 2 diabetes 2:45p MD Mey mellitus without complications I10 Essential (primary) hypertension Plan of Treatment Future Appointment(s):06/28/2019 3:30 pm - Christopher Mathias MD at [facility]08/09/2019 3:00 pm - Christopher Mathias MD at [facility] - Christopher Mathias MDE11.40 Type 2 diabetes mellitus with diabetic neuropathy, unspecifiNew Labs:Comp Metabolic Panel, Ordered: 03/28/19Hemoglobin A1c (Glyco HGB), Ordered: 03/28/19I10 Essential (primary) hypertensionNew Labs: Lipid Profile (Trig/Chol/HDL), Ordered: 03/28/19
--- OUTSIDE RECORDS SUMMARY | 2019-03-31 11:04 | XMS REPORT | Continuity of Care Document ---
:1955 External Reference #:[id number] Author Name Deborah Orta O.D. Address [address] [place] [address] Care Team Providers Name Role Phone Christopher Mathias M.D. Primary Care Physician Unavailable Payers Date Identification Numbers Payment Provider Subscriber Policy Number: [id number] [place] [employer] Sim Barrientos PayID: [id number] [address] [place] [address] Advance Directives Description No Information Available Problems Active Problems Provider Date Type 2 diabetes mellitus Christopher Goode M.D. Onset: 06/27/2015 Note: 2001 Essential hypertension Onset: Hypercholesterolemia Onset: Acid reflux Onset: Ocular hypertension Christopher Goode M.D. Onset: 06/27/2015 Amblyopia Christopher Goode M.D. Onset: 06/27/2015 Nuclear senile cataract Christopher Goode M.D. Onset: 06/27/2015 Pseudophakia Christopher Goode M.D. Onset: 06/27/2015 Tear film insufficiency Deborah Orta O.D. Onset: 04/01/2016 Refractive amblyopia Christopher Goode M.D. Onset: 09/30/2016 Presence of intraocular lens Christopher Goode M.D. Onset: 09/30/2016 Other secondary cataract, left eye Christopher Goode M.D. Onset: 09/30/2016 Superficial punctate keratitis Deborah Orta O.D. 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 Employment ETOH Use Rarely consumes alcohol Tobacco Use Start: Unknown Patient has never smoked Recreational Drug Use Denies Drug Use Smoking Status Reviewed: 03/07/19 Patient has never smoked Allergies, Adverse Reactions, Alerts Description No Known Drug Allergies Medications Active Medications SIG Qnty Indications Ordering Provider Date Naproxen Christopher Jaramillo 500mg Tablets M.D Levothyroxine Sodium Take One Tablet Unknown 50mcg By Mouth Every Tablets Day Gabapentin 1 by mouth three Unknown 300mg Capsules times a day Fish Oil Double 2 by mouth every Christopher Goode, Strength day M.D. 1200mg Capsules Cialis 1 by mouth every Unknown 20mg Tablets day as needed Omeprazole Magnesium 1 by mouth every Unknown day as needed 20.6(20Base) mg Capsules Lisinopril-Hydrochlorot 1 by mouth every Unknown hiazide day 20-25mg Tablets Simvastatin 1 by mouth every Unknown 10mg Tablets day Aspirin 1 by mouth every Unknown 81mg Tablets DR day Metformin HCL ER 1 tab by mouth Unknown 750mg twice a day Tablets ER 24HR Glipizide ER 1 by mouth every Unknown 10mg Tablets day ER 24HR History Medications Ciprofloxacin HCL instill one drop 10ml Christopher Goode, 02/16/2016 - 0.3% in the left eye M.D. 02/21/2016 Solution three times a day, start the day before surgery Ketorolac Tromethamine use one drop in 9ml Christopher Goode, 02/16/2016 - the left eye M.D. 03/03/2016 0.5% Solution three times a day, start the day before surgery Prednisolone Acetate 1 drop left eye Christopher Goode, 02/16/2016 - 1% four times a day M.D. 03/31/2016 Suspension Simbrinza 1 drop left eye 8ml H40.053 Christopher Goode, 02/16/2016 - 1-0.2% twice a day M.D. 02/21/2016 Suspension Magnesium Oxide 1 by mouth every Unknown - 400mg day 02/15/2016 Capsules Fish Oil 1 by mouth every Unknown - 1000mg Capsules day 02/15/2016 Meloxicam Unknown - 7.5mg Tablets 02/18/2016 Omeprazole Sabrina Gastelum P.Jennifer - 20mg Capsules 03/06/2019 Immunizations Description No Information Available Vital Signs Date Vital Result Comment 01/04/2017 3:50pm BP Systolic 146 mmHg BP Diastolic 85 mmHg Heart Rate 62 /min Respiratory Rate 12 /min Results Test Date Facility Test Result H/L Range Note Laboratory test 02/18/2016 [facility] 148 mg/dL High 74-106 [address] Glucose [place], [place] [id number] (215)- - 1 Blower Installer: [id number] WALLACE Procedures Date Code Description Status 04/04/2018 22755 Visual Field Exam Extended Completed 04/04/2018 25616 Est Patient Intermediate Exam Completed 10/03/2017 20821 Determination Of Refractive State Completed 10/03/2017 14988 Est Patient Comprehensive Exam Completed 01/04/2017 65074 Remove Secondary Cataract, Laser (Yag) Completed 12/31/2016 20228 Est Patient Intermediate Exam Completed 09/30/2016 73851 Est Patient Intermediate Exam Completed 02/18/2016 79003 Cataract Surgery Complex Completed 02/16/2016 52164 Ophthalmic Biometry Completed 01/23/2016 42519 Est Patient Comprehensive Exam Completed 06/27/2015 57628 Est Patient Comprehensive Exam Completed 06/27/2015 53743 Fundus Photography With Interpretation And Report Completed 12/26/2014 11507 Visual Field Exam Extended Completed 12/26/2014 73960 Gonioscopy Completed 12/26/2014 44772 Est Patient Intermediate Exam Completed 06/24/2014 29011 Est Patient Comprehensive Exam Completed 12/25/2013 57294 Est Patient Intermediate Exam Completed 06/06/2013 40021 Extracapsular Cataract Extraction W/Intraocular Lens Completed 05/24/2013 41993 Ophthalmic Biometry Completed 05/21/2013 98564 Est Patient Comprehensive Exam Completed 05/18/2012 75393 Est Patient Comprehensive Exam Completed 05/18/2012 53000 Visual Field Exam Extended Completed 05/18/2012 57424 Scanning Computerized Ophthalmic Diagnostic Imag Posterior Completed Seg On 05/13/2011 14865 Visual Field Exam Extended Completed 05/13/2011 43500 Determination Of Refractive State Completed 05/13/2011 71899 Est Patient Comprehensive Exam Completed 11/10/2010 38500 Fundus Photography With Interpretation And Report Completed 11/10/2010 61965 Est Patient Comprehensive Exam Completed 05/05/2010 16806 Visual Field Exam Extended Completed 04/21/2010 36549 Est Patient Intermediate Exam Completed 10/20/2009 87426 Determination Of Refractive State Completed 10/20/2009 17585 Est Patient Comprehensive Exam Completed 04/17/2009 10642 Est Patient Intermediate Exam Completed 04/17/2009 50329 Visual Field Exam Extended Completed 10/16/2008 22882 Scanning Laser W/Interp And Report Completed 10/16/2008 86971 Determination Of Refractive State Completed 10/16/2008 01362 Est Patient Comprehensive Exam Completed 06/16/2007 70021 Scanning Laser W/Interp And Report Completed 06/16/2007 32298 Visual Field Exam Extended Completed 05/19/2007 77172 Fundus Photography With Interpretation And Report Completed 05/19/2007 33319 Est Patient Comprehensive Exam Completed 11/26/2005 33553 Determination Of Refractive State Completed 11/26/2005 63782 New Patient Comprehensive Exam Completed 11/26/2005 60272 Pachymetry Completed Encounters Type Date Location Provider Dx Diagnosis Office Visit 02/16/2016 Christopher Linares, H25.12 Age- related [age]a jd CARRANZA M.D. nuclear cataract, left eye E11.9 Type 2 diabetes mellitus without complications H40.053 Ocular hypertension, bilateral Z96.1 Presence of intraocular lens Office Visit 05/24/2013 9:15a Christopher Linares 366.16 Senile Nuclear jd CARRANZA M.D. Sclerosis / Cataract 366.16 Senile Nuclear Sclerosis / Cataract Office Visit 05/27/2006 2:30p Christopher Contreras 365.04 Ocular Hypertension MD Rupa, jd Goode M.D. Plan of Treatment Future Appointment(s):04/05/2019 10:45 am - Christopher Goode M.D. at [facility]04/05/2019 10:00 am - [facility] at [facility]e [facility]2018 - Deborah Orta O.D.H16.142 Punctate keratitis, left eyeComments:Smoking can increase the risk of developing or worsening any eye related disease, as well as affect your overall health. If you are a smoker, we strongly recommend that you quit.If you are not a smoker, we strongly recommend that you do not start. start using artificial tears at least 4 times a day in the left eyeif your symptoms worsen, please call the office to be seenFollow up:as scheduled
[2019-03-31 11:08] VITALS: BP 137/82
--- NOTE | 2019-03-31 11:44 | UC ---
Skin Complaint HPI - HPI Summary HPI Summary: 64-year-old male with history of diabetes that is well controlled presents with rash on his right neck for 3 weeks' time. He states he was recently checked out by his doctor for blood sugar but forgot to tell him about it. The rashes since expanded. It is not painful but mildly itchy. He denies any other symptoms associated with it. - History of Current Complaint Chief Complaint: UCSkin Time Seen by Provider: 03/31/19 11:34 Stated Complaint: RING ON RT SIDE OF NECK Hx Obtained From: Patient, Family/Media Relations Coordinator Pain Intensity: 0 - Allergy/Home Medications Allergies/Adverse Reactions: Allergies Allergy/AdvReac Type Severity Reaction Status Date / Time No Known Allergies Allergy Verified 03/31/19 11:08 PMH/Surg Hx/FS Hx/Imm Hx Endocrine History: Diabetes - Surgical History Surgical History: Yes Surgery Procedure, Year, and Place: VARICOSE VEIN [id number]. APPENDECTOMY-CLEARWATER. 12/2012 TAILOR'S BUNIONECTOMY WITH METARTARSAL OSTEOTOMY , EXCISION OF BONE SPUR, DEBRIDEMENT OF TENDON RIGHT FOOT, [facility] [place]. 03/2013 ORIF FIFTH METATARSAL RIGHT FOOT. 05/2013 CATARACT EXTRACTION TO THE RIGHT EYE WITH IOL IMPLANT, [facility] [place]. [place]-CATARACT LEFT EYE - Family History Known Family History: Positive: Non-Contributory - Social History Lives: With Family Alcohol Use: Occasionally Substance Use Type: None Smoking Status (MU): Never Smoked Tobacco Have You Smoked in the Last Year: No Review of Systems All Other Systems Reviewed And Are Negative: Yes Constitutional: Negative: Fever Skin: Positive: Rash ENT: Positive: Negative Respiratory: Positive: Negative Musculoskeletal: Negative: Arthralgia Physical Exam Appearance: Well-Appearing, No Pain Distress, Well-Nourished Vital Signs: Initial Vital Signs Temp 98.0 F 03/31/19 11:05 Pulse 77 03/31/19 11:05 Resp 18 03/31/19 11:05 BP 137/82 03/31/19 11:05 Pulse Ox 99 03/31/19 11:05 Eye Exam: Normal ENT: Positive: Hearing grossly normal Neck: Positive: Supple Respiratory: Positive: Lungs clear Cardiovascular: Positive: RRR Musculoskeletal: Positive: ROM Intact Psychological Exam: Normal Skin Exam: Other - Slightly reddened annular lesion in the right neck just under the ER with excoriation in the center and central clearing. This fluoresces under Jung lamp. Course/Dx - Course Course Of Treatment: Patient with fluorescing annular lesion consistent with ringworm. Treat topically. - Differential Diagnoses - Skin Complaint Differential Diagnoses: Other - Erythema chronicum migrans, tinea corporis - Diagnoses Provider Diagnosis: Tinea corporis Discharge - Sign-Out/Discharge Documenting (check all that apply): Patient Departure All imaging exams completed and their final reports reviewed: No Studies - Discharge Plan Condition: Improved Disposition: HOME Prescriptions: Terbinafine HCl [Antifungal] 30 gm .SEE ORDER BID 21 Days #1 cream..g. Patient Education Materials: Tinea Corporis (ED) Referrals: Christopher Mathias MD [Primary Care Provider] - Additional Instructions: Rash may take up to a month to get better. Treated every day even if it looks to have mostly gone. Treated for minimal of 3 weeks. Return if worse, uncontrolled blood sugars, new symptoms or other concerns. Follow up with your doctor as needed. - Billing Disposition and Condition Condition: IMPROVED Disposition: Home
== END 2019-03-31 11:56 | disposition home or self-care (01) ==
LOC: UCEAST 10:57
DX: B35.4 Tinea corporis (principal); E11.9 Type 2 diabetes mellitus without complications
CPT/HCPCS: 99212; G0463